=== PATIENT | female | born 1940 | race Caucasian/White ===

== ENCOUNTER → 2021-06-12 17:16 | Outpatient (CLI) | payer MEDICARE, SELFPAY ==
[2021-06-12 19:06] LABS: Basophils % 0.6 % (0.1-2.0); Eosinophils # 0.1 K/mm3 (0.0-0.4); Eosinophils % 3.1 % (0.1-12.0); Hematocrit 37.6 % (37.0-47.0); Hemoglobin 13.1 g/dL (12.2-16.2); Lymphocytes # 1.5 K/mm3 (0.7-4.5); Lymphocytes % 33.2 % (10-50); Mean Corpuscular HGB Conc 34.7 g/dL (31.8-35.4); Mean Corpuscular Hemoglobin 32.1 pg (27.0-31.2); Mean Corpuscular Volume 92.5 fl (81-99); Mean Platelet Volume 8.9 fl (7.4-10.4); Monocytes # 0.2 K/mm3 (0.1-1.0); Monocytes % 5.4 % (1.7-9.3); Neutrophils # 2.6 K/mm3 (1.8-7.8); Neutrophils % 57.6 % (37.0-80.0); Platelet Count 175 K/mm3 (142-424); Red Blood Count 4.07 M/mm3 (4.20-5.40); White Blood Count 4.5 K/mm3 (4.8-10.8)
[2021-06-12 19:50] LABS: Alanine Aminotransferase 18 U/L (12-78); Albumin Level 4.5 g/dl (3.5-5.0); Albumin/Globulin Ratio 1.6 (1.1-1.8); Alkaline Phosphatase 85 U/L (38-126); Anion Gap 11.2 mEq/L (5-15); Aspartate Amino Transferase 34 U/L (14-36); Bilirubin,Total 0.6 mg/dl (0.2-1.3); Blood Urea Nitrogen 16 mg/dl (7-17); Calcium 9.4 mg/dl (8.4-10.2); Carbon Dioxide 31 mmol/L (22.0-30.0); Chloride 101 mmol/L (98-107); Chol/HDL Ratio 2.1 (1-3.5); Cholesterol 189 mg/dl (140-200); Estimated Glomerular Filt Rate 97 ml/min (>60); GFR (African American) 117 ML/MIN (>60); Globulin 2.9 g/dL (1.3-3.2); Glucose 88 mg/dl (74-100); HDL Cholesterol 88 mg/dl (40-60); Potassium 4.2 mmoL/L (3.5-5.1); Sodium 139 mmol/L (136-145); Total Protein,Serum 7.4 g/dl (6.3-8.2); Triglycerides 80 mg/dl (30-150); VLDL Cholesterol 16 mg/dL (0-40)
[2021-06-12 20:01] LABS: Direct LDL Cholesterol 79.05 mg/dL (100-129)
[2021-06-12 20:23] LABS: Thyroid Stimulating Hormone 2.18 uIU/mL (0.465-4.68)
== END ==
PROVIDERS: Visit Provider Internal Medicine Adolescent Medicine
DX: E78.01 Familial hypercholesterolemia (principal); Z86.79 Personal history of other diseases of the circulatory system
CPT/HCPCS: 36415; 80053; 80061; 84443; 85025

== ENCOUNTER → 2021-07-04 12:50 | Outpatient (CLI) | payer MEDICARE, SELFPAY ==
--- NOTE | 2021-07-04 12:53 | CA_ITS ---
APPROVED REPORT EXAM: Comprehensive 2D, Doppler, and color-flow Echocardiogram Manager Of Development: Zelda Gabriel RT(R) Ht: 5 ft 5 in Wt: 144lbs BSA: 1.72 BP: 000/00 mmHg Indications: AFIB, murmur, HTN, hyperlipidemia 2D Dimensions LVOT 1.96 cm (M/F) 1.5-2.5 LA Volume 90.20 mL LA Volume Index 52.44 mL/m2 (M/F) 16-34 M-Mode Dimensions RVDd 3.57 cm (0.9-2.6) LA Diam 4.81 cm (1.9-4.0) LVDd 4.53 cm (3.5-5.7) Ao Diam 2.58 cm (2.0-3.7) LVDs 3.00 cm (3.5-5.7) IVSd 0.89 cm (0.6-1.1) PWd 0.68 cm (0.6-1.1) EF (Teich) 62.70% FS 33.80% EDV (Teich) 93.90 mL ESV (Teich) 35.00 mL LV Diastology E Decel Time 147.00 (160-240 msec) E/A Ratio 1.5 MED E' 8.60 (< 7 cm/sec) E'/MED E' Ratio 13.59 (>14) LAT E' 11.80 (<10 cm/sec) E/LAT E' Ratio 9.91 (>14) Mitral Valve MV E Max Jovany. 117.00 (40-130 cm/s) MV A Velocity 76.00 (40-130 cm/s) E/A Ratio 1.55 MV Decel. Time 147.00 (160-240 ms) MV PHT 43.00 ms Tricuspid Valve TR P. Velocity 341.00 cm/s RAP Estimate 15.00 mmHg RVSP 61.50 mmHg Left Ventricle Left atrium is moderately enlarged, left ventricle is normal size, mild concentric left ventricular hypertrophy, visually estimated ejection fraction 55% with no regional wall motion abnormality, diastolic parameters are inconclusive. Right Ventricle Right atrium and right ventricle moderately enlarged with normal contractility. Aortic Valve Aortic valve is thickened and calcified without aortic stenosis or aortic insufficiency. Mitral Valve Mitral valve leaflets are minimally thickened, there is mild mitral regurgitation. Tricuspid Valve Tricuspid valve is grossly normal, there is moderate tricuspid regurgitation, calculated right ventricular systolic pressure 62 mmHg. Pulmonic Valve Pulmonic valve is poorly visualized. Great Vessels Aortic root is normal size. Inferior vena cava is mildly dilated with normal inspiratory collapse. Pericardium No significant pericardial effusion noted Conclusion 1. Biatrial enlargement, normal left ventricular size, mild concentric left ventricular hypertrophy, visually estimated ejection fraction 55% with no regional wall motion abnormality. Diastolic parameters are inconclusive. 2. Moderately enlarged right ventricle with normal contractility. 3. Mild mitral and moderate tricuspid regurgitation, calculated right ventricular systolic pressure 62mmHg. 4. No significant pericardial effusion noted, inferior vena cava is mildly dilated with normal inspiratory collapse. Electronically signed by : Brandon Menon MD 07/04/2021 20:55:52
--- NOTE | 2021-07-04 12:53 | US_ITS ---
APPROVED REPORT Exam Type: Ankle to Brachial Index Event Sales Assistant: RT Justin(R) Indications Claudication: Bilaterally Rest Pain: Bilaterally Extensive and fragile varicosities noted in bilateral lower extremities. Risk Factors Hypertension Hyperlipidemia Pressures/Indices Right Indices Left Indices Brachial 149.00 mmHg Brachial 146.00 mmHg Low Thigh 202.00 mmHg 1.36 Low Thigh 177.00 mmHg 1.19 Calf 176.00 mmHg 1.18 Calf 167.00 mmHg 1.12 Ankle(PT) 186.00 mmHg 1.25 Ankle(PT) 193.00 mmHg 1.30 Ankle(DP) 162.00 mmHg 1.09 Ankle(DP) 145.00 mmHg 0.97 Digit 138.00 mmHg 0.93 Digit 110.00 mmHg 0.74 Findings RT MUSA=1.25 LT MUSA=1.30 RT TBI=0.93 LT TBI=0.74 Normal pulses bilaterally Diminished waveforms at the ankle level bilaterally Conclusion RT MUSA=1.25 LT MUSA=1.30 RT TBI=0.93 LT TBI=0.74 Normal pulses bilaterally Diminished waveforms at the ankle level bilaterally Normal ABIs Electronically signed by : Keven Villafana MD 07/04/2021 16:15:00
== END ==
PROVIDERS: PCP Internal Medicine Adolescent Medicine; Visit Provider Urology
DX: E78.5 Hyperlipidemia, unspecified (principal); I10 Essential (primary) hypertension; I48.91 Unspecified atrial fibrillation; M79.604 Pain in right leg; R60.0 Localized edema; R94.31 Abnormal electrocardiogram [ECG] [EKG]; M79.605 Pain in left leg; I70.213 Atherosclerosis of native arteries of extremities with intermittent claudication, bilateral legs
CPT/HCPCS: 93306; 93923

== ENCOUNTER → 2021-11-06 14:15 | Outpatient (CLI) | payer MEDICARE, SELFPAY ==
[2021-11-06 14:57] LABS: Basophils % 0.5 % (0.1-2.0); Eosinophils # 0.1 K/mm3 (0.0-0.4); Eosinophils % 2.6 % (0.1-12.0); Hematocrit 37.1 % (37.0-47.0); Hemoglobin 11.8 g/dL (12.2-16.2); Lymphocytes % 28.2 % (10-50); Mean Corpuscular HGB Conc 31.9 g/dL (31.8-35.4); Mean Corpuscular Volume 97.1 fl (81-99); Mean Platelet Volume 8.4 fl (7.4-10.4); Monocytes # 0.2 K/mm3 (0.1-1.0); Neutrophils # 2.2 K/mm3 (1.8-7.8); Neutrophils % 62.7 % (37.0-80.0); Platelet Count 188 K/mm3 (142-424); Red Blood Count 3.82 M/mm3 (4.20-5.40); Red Cell Distribution Width 14.1 % (11.5-17.5); White Blood Count 3.5 K/mm3 (4.8-10.8)
[2021-11-06 15:44] LABS: Alanine Aminotransferase 18 U/L (12-78); Albumin Level 4.3 g/dl (3.5-5.0); Albumin/Globulin Ratio 1.7 (1.1-1.8); Alkaline Phosphatase 68 U/L (38-126); Anion Gap 8.9 mEq/L (5-15); Aspartate Amino Transferase 36 U/L (14-36); Bilirubin,Total 0.5 mg/dl (0.2-1.3); Blood Urea Nitrogen 15 mg/dl (7-17); Calcium 9.7 mg/dl (8.4-10.2); Carbon Dioxide 32 mmol/L (22.0-30.0); Chloride 100 mmol/L (98-107); Cholesterol 172 mg/dl (140-200); Estimated Glomerular Filt Rate 81 ml/min (>60); GFR (African American) 98 ML/MIN (>60); Globulin 2.5 g/dL (1.3-3.2); Glucose 85 mg/dl (74-100); HDL Cholesterol 85 mg/dl (40-60); Potassium 3.9 mmoL/L (3.5-5.1); Sodium 137 mmol/L (136-145); Total Protein,Serum 6.8 g/dl (6.3-8.2); Triglycerides 69 mg/dl (30-150); VLDL Cholesterol 14 mg/dL (0-40)
[2021-11-06 16:01] LABS: Direct LDL Cholesterol 74.12 mg/dL (100-129); Free Thyroxine Index 3.4 ug/dL (5.93-13.13); T4 (Thyroxine) 10.5 ug/dl (5.53-11.0); Triiodothryronine (T3) Uptake 32 % (23.5-40.5)
[2021-11-06 16:14] LABS: Thyroid Stimulating Hormone 1.18 uIU/mL (0.465-4.68)
== END ==
PROVIDERS: Visit Provider Internal Medicine Adolescent Medicine
DX: I48.91 Unspecified atrial fibrillation (principal); E78.01 Familial hypercholesterolemia; N95.1 Menopausal and female climacteric states
CPT/HCPCS: 80053; 80061; 82306; 84436; 84443; 84479; 85025

== ENCOUNTER → 2022-01-04 09:24 | Outpatient (CLI) | payer MEDICARE, SELFPAY ==
--- NOTE | 2022-01-04 09:33 | XR_ITS ---
FINAL REPORT TECHNIQUE: Bone mineral density was calculated of the lumbar spine and hip. CLINICAL HISTORY: . post menopausal FINDINGS: Using L1-4, the bone mineral density of the spine is 1.116 g/cm2, corresponding to T-score of 0.6. Using the left hip, the bone mineral density of the total is 0.712 g/cm2, corresponding to a T-score of -1.9. NOTE: T-score: Standard deviation compared with peak bone mass of young adult mean. *Following the recommendations of the International Society of Bone densitometry, classification of hip BMD is based on the lower of two T-scores; total hip or femoral neck. IMPRESSION: Osteopenia of the left hip with normal bone mineral density of the lumbar spine. Based on FRAX data 10 year fracture risk for major osteoporotic fracture is 9.7% and a 1.4% for hip fracture. Reviewed, Interpreted and Dictated by Wilmer Henriquez III, MD Transcribed by Nathan Monroe Authenticated by Wilmer Henriquez III, MD on 01/04/2022 11:01:[address] [facility]
== END ==
PROVIDERS: PCP Internal Medicine Adolescent Medicine; Visit Provider Internal Medicine Adolescent Medicine
DX: Z78.0 Asymptomatic menopausal state (principal)
CPT/HCPCS: 77080

== ENCOUNTER → 2022-11-06 16:58 | Outpatient (CLI) | payer MEDICARE, SELFPAY ==
--- NOTE | 2022-11-06 17:14 | XR_ITS ---
PROCEDURE INFORMATION: Exam: XR Left Hip Exam date and time: 11/06/2022 5:17 PM Age: 82 years old Clinical indication: Hip pain; Left hip TECHNIQUE: Imaging protocol: Radiologic exam of the Left hip. Views: 2 or 3 views hip with pelvis when performed. COMPARISON: No relevant prior studies available. FINDINGS: Bones/joints: Osseous alignment is normal. No acute fracture seen. There are moderate degenerative changes in the bilateral hip joints and lower lumbar spine. Soft tissues: Unremarkable. Vasculature: Calcifications in the pelvis are compatible with phleboliths and benign uterine calcifications. IMPRESSION: Chronic findings as noted. No acute fracture
== END ==
PROVIDERS: PCP Internal Medicine Adolescent Medicine; Visit Provider Nurse Practitioner Family
DX: M25.852 Other specified joint disorders, left hip (principal)
CPT/HCPCS: 73502

== ENCOUNTER 2023-01-25 14:00 | Outpatient (RCR) | payer MEDICARE, SELFPAY ==
--- NOTE | 2023-01-15 15:49 | HMH.PTOPEV ---
PT Outpatient Evaluation Rehab PT Outpatient Evaluation Start: 01/15/23 15:35 Freq: Status: Active Protocol: Document 01/15/23 15:35 JAROCHO (Rec: 01/15/23 15:49 JAROCHO [id number]) E-signed By Jimmy Leach, PT Outpatient Therapy Subjective History Subjective History Patient is an 82 year old female presenting to outpatient PT with reports of L hip pain/weakness starting and ending 12/2022. Most recent imaging indicates L hip OA. Patient reports that pain started the day after an episode of prolonged standing (approx 1 hr) in November. Comorbidities include hx of stripped varicose veins, Afib, HTN, HL and appendectomy. Chief Complaint Pain,Stiff,Weakness Symptom Type Ache,Sharp,Dull Symptoms Relieved By Rest/Positioning,Heat,OTC Meds Symptoms Aggravated By Standing,Physical Activity, Walking Prior Functional Limitations None Current Functional Limitations Housework,Standing,Walking, Stairs,Balance Symptom Description Intermittent Level of pain today (0-10) 0 Pain scale - at its best (0-10) 0 Pain scale - at its worst (0-10) 4 Hip/Knee Eval Gait Observation General Gait Pattern Observation Antalgic Gait,Decrease Weight Bear (L) MMT left Hip Flexion Strength Grade 4- Good- Hip Abduction Strength Grade 4 Good Hip Adduction Strength Grade 4 Good Hip Extension Strength Grade 4 Good Hip External Rotation Strength Grade 4- Good- Hip Internal Rotation Strength Grade 4- Good- Knee Extension Strength Grade 4- Good- Knee Flexion Strength Grade 4 Good ROM Hip Flexion w/Knee Flexed Passive Range 92 of Motion (degrees) Hip Flexion w/Knee Extended Passive 47 Range of Motion (degrees) Hip Abduction Passive Range of Motion ( 36 degrees) Hip Extension Passive Range of Motion ( 12 degrees) Hip External Rotation Passive Range of WNL Motion (degrees) Hip Internal Rotation Passive Range of 10 Motion (degrees) Knee ROM Reason Not Measured Within Functional Limits Special Tests Hip Jigar Test Positive Left Hip Piriformis Test Positive Left Enrique Test Positive Outpatient Therapy Assessment Impairments Problems/Impairmments Impaired Range of Motion,
== END 2023-01-25 14:05 | disposition home or self-care (01) ==
LOC: PT 14:00
PROVIDERS: PCP Internal Medicine Adolescent Medicine; Visit Provider Internal Medicine Adolescent Medicine
DX: M25.852 Other specified joint disorders, left hip (principal); M79.605 Pain in left leg
CPT/HCPCS: 97110; 97163; 97530

== ENCOUNTER → 2023-01-29 09:51 | Outpatient (CLI) | payer MEDICARE, SELFPAY ==
--- NOTE | 2023-01-29 09:55 | US_ITS ---
FINAL REPORT TECHNIQUE: Ultrasound images of the kidneys and bladder were obtained. CLINICAL HISTORY: RENAL MASS FINDINGS: The right kidney measures 9.2 cm in length. It is normal in echogenicity. There is no hydronephrosis. There is a small, hypoechoic lesion in the mid right kidney measuring 1.6 cm, likely a cyst. The left kidney measures 8.9 cm in length. It is normal in echogenicity. There is no hydronephrosis. IMPRESSION: Right renal cyst. Reviewed, Interpreted and Dictated by Kandis Carrizales MD Transcribed by Lynnette Vinson Authenticated and [facility]
== END ==
PROVIDERS: PCP Internal Medicine Adolescent Medicine; Visit Provider Internal Medicine Adolescent Medicine
DX: N28.1 Cyst of kidney, acquired (principal)
CPT/HCPCS: 76770

== ENCOUNTER 2023-05-11 12:40 | Emergency (ER) | payer MEDICARE, SELFPAY ==
--- NOTE | 2023-05-11 12:45 | XR_ITS ---
PROCEDURE INFORMATION: Exam: XR Left Hand Exam date and time: 05/11/2023 12:43 PM Age: 82 years old Clinical indication: Pain; Finger(s) and wrist; Left; Additional info: (l) wrist and thumb pain. Patients states no injury but pain and tingling down into her fingers. TECHNIQUE: Imaging protocol: Radiologic exam of the left hand. Views: 3 or more views. COMPARISON: No relevant prior studies available. FINDINGS: Bones/joints: Diffuse osteopenia. Dystrophic calcification in the dorsal carpal region possibly sequela of prior triquetral fracture. No visible fracture or dislocation. No significant periarticular erosive changes to suggest inflammatory arthritis. Soft tissues: Normal. IMPRESSION: 1. No visible fracture or dislocation. 2. No significant periarticular erosive changes to suggest inflammatory arthritis.
[2023-05-11 13:15] VITALS: BP 151/96; PULSE 74; RESP 16; TEMP 36.6; O2SAT 98; BMI 24.0
--- NOTE | 2023-05-11 13:31 | EXP.UTC ---
Discharge Plan Disposition Patient Disposition: Home, Self-Care Condition: Good Prescriptions Prescriptions: New diclofenac sodium [Voltaren Arthritis Pain] 1 % gel 2 g topical BID Qty: 100 0RF Rx Instructions: apply to , wrist or hand; No Action Eliquis 5 mg tablet 5 mg PO ONCE loratadine 10 mg tablet 10 mg PO DAILY cholecalciferol (vitamin D3) 50 mcg (2,000 unit) capsule 50 mcg PO DAILY vitamin E 400 unit capsule 400 unit PO DAILY calcium carbonate 600 mg calcium (1,500 mg) tablet 600 mg PO DAILY ascorbic acid (vitamin C) 500 mg capsule 500 mg PO DAILY atorvastatin 20 mg tablet 20 mg PO DAILY Qty: 90 3RF lisinopril 5 mg tablet 5 mg PO DAILY Qty: 90 3RF Referrals Follow up/Referrals: Kolton Wayne MD [Primary Care Provider] - See instructions Activity Restrictions/Add. Instructions Additional Instructions/Restrictions: apply cream as needed. follow up with pcp if symptoms worsen or no improvement return or be seen in ed Instructions Patient Instructions: DI for Arthritis Discharge ED Provider: Isacc ([facility])[place] [facility] [place] H[place] General Stated complaint: LT hand pain no known accident Mode of Arrival: Ambulatory Source of Information: Patient Limitations: No Limitations Time Seen by Provider: 05/11/23 13:31 Description of Symptoms (Recalled from Triage Doc. by RN): PATIENT C/O PAIN TO LEFT WRIST AND HAND SINCE SATURDAY. NO KNOWN INJURY HEENT Symptoms (Recalled from RN notes): No Resp Symptoms (Recalled from RN notes): No Skin Symptoms (Recalled from RN notes): No MS Symptoms (Recalled from RN notes): Yes Functional Status (Recalled from RN notes): WNL History of Present Illness Provider Complaint: 82 yr old female presents for left wrist and hand pain that started . hx of arthritis Related Data Home Medications Medication Instructions Recorded Confirmed apixaban 5 mg tablet (Eliquis) 5 mg PO ONCE 06/26/21 01/16/23 ascorbic acid (vitamin C) 500 mg 500 mg PO DAILY 06/26/21 01/16/23 capsule calcium carbonate 600 mg calcium 600 mg PO DAILY 06/26/21 01/16/23 (1,500 mg) tablet cholecalciferol (vitamin D3) 50 50 mcg PO DAILY 06/26/21 01/16/23 mcg (2,000 unit) capsule loratadine 10 mg tablet 10 mg PO DAILY 06/26/21 01/16/23 vitamin E 268 mg (400 unit) capsule 400 unit PO DAILY 06/26/21 01/16/23 Previous Rx's Medication Instructions Recorded atorvastatin 20 mg tablet 20 mg PO DAILY #90 tabs 01/10/22 lisinopril 5 mg tablet 5 mg PO DAILY #90 tabs 07/12/22 diclofenac sodium 1 % topical gel 2 g topical BID #100 grams 05/11/23 (Voltaren Arthritis Pain) Allergies Allergy/AdvReac Type Severity Reaction Status Date / Time diazepam [From Valium] AdvReac dizziness Verified 01/16/23 13:47 ezetimibe [From Zetia] AdvReac swelling Verified 01/16/23 13:47 ibuprofen [From Motrin] AdvReac bleeding Verified 01/16/23 13:47 lovastatin [From Mevacor] AdvReac itching Verified 01/16/23 13:47 pravastatin AdvReac swelling Verified 01/16/23 13:47 simvastatin [From Zocor] AdvReac itching Verified 01/16/23 13:47 Sulfa (Sulfonamide AdvReac sycope Verified 01/16/23 13:47 Antibiotics) Worker's Comp Is this a Worker's Comp case?: No [facility] Disclaimer: The information contained in this section may have been updated after the patient was seen, as this information can be updated by other users. 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
[2023-05-11 13:37] VITALS: BP 151/96; PULSE 74; RESP 16; TEMP 36.6; O2SAT 98
== END 2023-05-11 13:40 | disposition home or self-care (01) ==
PROVIDERS: Emergency Provider Nurse Practitioner Family; PCP Internal Medicine Adolescent Medicine
DX: M19.032 Primary osteoarthritis, left wrist (principal); M19.042 Primary osteoarthritis, left hand; I48.0 Paroxysmal atrial fibrillation; I27.20 Pulmonary hypertension, unspecified; I10 Essential (primary) hypertension; E78.5 Hyperlipidemia, unspecified; F41.9 Anxiety disorder, unspecified
CPT/HCPCS: 73130; 99204; 99212; G0463

== ENCOUNTER → 2023-09-17 13:29 | Outpatient (POV) | payer MEDICARE, SELFPAY | PROVIDERS: PCP Internal Medicine Adolescent Medicine; Visit Provider Dermatology | DX: Z00.00 Encounter for general adult medical examination without abnormal findings (principal) ==

== ENCOUNTER 2024-03-10 09:57 | Outpatient (CLI) | payer MEDICARE, SELFPAY ==
[2024-03-10 17:20] LABS: Basophils % 0.5 % (0.1-2.0); Eosinophils # 0.1 K/mm3 (0.0-0.4); Eosinophils % 3.4 % (0.1-12.0); Hematocrit 35.1 % (37.0-47.0); Hemoglobin 11.1 g/dL (12.2-16.2); Lymphocytes # 1.2 K/mm3 (0.7-4.5); Lymphocytes % 28.9 % (10-50); Mean Corpuscular HGB Conc 31.7 g/dL (31.8-35.4); Mean Corpuscular Volume 97.6 fl (81-99); Mean Platelet Volume 8.6 fl (7.4-10.4); Monocytes # 0.3 K/mm3 (0.1-1.0); Monocytes % 6.4 % (1.7-9.3); Neutrophils # 2.5 K/mm3 (1.8-7.8); Neutrophils % 60.8 % (37.0-80.0); Platelet Count 183 K/mm3 (142-424); Red Cell Distribution Width 14.7 % (11.5-17.5); White Blood Count 4.1 K/mm3 (4.8-10.8)
[2024-03-10 18:30] LABS: Alanine Aminotransferase 22 U/L (12-78); Albumin Level 4.4 g/dl (3.5-5.0); Albumin/Globulin Ratio 1.7 (1.1-1.8); Alkaline Phosphatase 72 U/L (38-126); Anion Gap 13.1 mEq/L (5-15); Aspartate Amino Transferase 36 U/L (14-36); Bilirubin,Total 0.5 mg/dl (0.2-1.3); Blood Urea Nitrogen 26 mg/dl (7-17); Calcium 9.8 mg/dl (8.4-10.2); Carbon Dioxide 29 mmol/L (22.0-30.0); Chloride 99 mmol/L (98-107); Estimated Glomerular Filt Rate 80 ml/min (>60); GFR (African American) 97 ML/MIN (>60); Globulin 2.6 g/dL (1.3-3.2); Glucose 85 mg/dl (74-100); Potassium 4.1 mmoL/L (3.5-5.1); Sodium 137 mmol/L (136-145)
== END 2024-03-10 23:59 | disposition home or self-care (01) ==
LOC: LAB.DROPOF 03-11 09:58
PROVIDERS: PCP Internal Medicine Adolescent Medicine; Visit Provider Obstetrics & Gynecology
DX: N32.81 Overactive bladder (principal)
CPT/HCPCS: 80053; 85025

== ENCOUNTER 2024-05-11 09:34 | Outpatient (RCR) | payer MEDICARE, SELFPAY ==
--- NOTE | 2024-05-11 16:25 | HMH.PTOPEV ---
PT Outpatient Evaluation Rehab PT Outpatient Evaluation Start: 05/11/24 16:08 Freq: Status: Active Protocol: Document 05/11/24 16:14 PHORNE (Rec: 05/11/24 16:25 PHORNE [id number]) E-signed By Francisco Barr, PT Outpatient Therapy Subjective History Subjective History This is the initial PT eval for Halina Willoughby, 83 yowf who presents with c/o dizziness x ~ 1 mo associated with certain ways I look with my eyes and turn my head sometimes. She reports looking up frequently causes her dizziness, but also looking down and to her right will cause it as well. She reports no true vertigo symptoms, the room doesn't spin around, but a general sense of dizziness that lasts for 1-2 minutes each episode. She does take medication for HTN, has decreased hearing on the R side, and decreased vision in her R eye. She also reports 1 fall over the past 6 months, ~ 1 mo ago, with no acute injuries, and due to her feeling dizzy. New diagnosis of cancer in past 12 No months? Chief Complaint Other Symptom Description Activity Dependent Balance Eval Nystagmus Nystagmus Presence None Oculomotor Gaze Oculomotor Gaze Nml: Vergence Smooth Pursuit Saccades VOR Cancellation Cover/Uncover Cross Cover Miscellaneous Dx PT Eval Objective Objective [place]-hallpike and horizontal roll testing performed with no c/o dizziness or vertigo and no nystagmus noted to either direction. Pt did not report reproduction of any of her previously reported symptoms with any occulomotor tests either. Outpatient Therapy Assessment Impairments Problems/Impairmments Impaired Balance Prognosis Rehab Potential Innapropriate for Skilled Therapy Comment Pt presents with prior symptoms of vertigo/dizziness this date, but no current symptom reproduction capable during evaluation this date. No skilled need for vertigo treatment at this time. Clinical Impression Consistent with Diagnosis Yes Outpatient Therapy Plan of Care Treatment Plan May Include Eval/Re-Eval Yes Addendums This patient is a candidate for social No or vocational rehab? Patient/Guardian verbally acknowledges Yes understanding of treatment program and consents to further treatment? Patient/Guardian verbally acknowledges Yes understanding of diagnosis, prognosis and goals for treatment? Eval Complexity PT Charges 37920 - High Complexity Shoulder/Elbow Eval Shoulder Objective Measurements Elbow Objective Measurements PHYSICIAN CERTIFICATION: I certify the specified therapy services for Halina M Willoughby are required, authorized, and reviewed every 30 days.
== END 2024-05-11 09:40 | disposition home or self-care (01) ==
LOC: PT 09:34
PROVIDERS: Visit Provider Internal Medicine Adolescent Medicine
DX: R42 Dizziness and giddiness (principal)
CPT/HCPCS: 97163

== ENCOUNTER 2024-06-12 23:38 | Emergency (ER) | payer MEDICARE, SELFPAY ==
[2024-06-12 23:38] VITALS: BP 181/91; PULSE 86; RESP 18; TEMP 36.6; O2SAT 98; BMI 24.1
--- NOTE | 2024-06-12 23:41 | ECG_ITS ---
APPROVED REPORT Exam: Resting ECG HR:78 bpm ECG Measurements Heart Rate 78 AXES QRSd 98 QRS 113 QT 393 T 58 QTc 426 Conclusion ATRIAL FIBRILLATION POSSIBLE RIGHT VENTRICULAR HYPERTROPHY [SOME/ALL OF: PROMINENT R IN V1, LATE TRANSITION, RAD, DANII, SSS] ABNORMAL ECG No STEMI Electronically signed by : KATHY PELAEZ, 06/13/2024 06:07:41
--- NOTE | 2024-06-12 23:45 | XR_ITS ---
PROCEDURE INFORMATION: Exam: XR Chest Exam date and time: 06/12/2024 11:54 PM Age: 83 years old Clinical indication: Pain; Chest pressure; Additional info: Cp TECHNIQUE: Imaging protocol: Radiologic exam of the chest. Views: 1 view. COMPARISON: No relevant prior studies available. FINDINGS: Lungs: No evidence of acute pulmonary disease or infiltrates Pleural spaces: No large effusion or pneumothorax. Heart/Mediastinum: The heart is enlarged. Vasculature: There are calcifications of the aortic arch. Bones/joints: No evidence of acute osseous abnormalities within the visualized portions of the thoracic spine and ribs. Osseous structures appear appropriate for patient age. IMPRESSION: No dense parenchymal consolidation, pleural effusion, or pneumothorax.
[2024-06-12 23:51] LABS: Basophils # 0.1 K/mm3 (0-0.2); Basophils % 0.9 % (0.1-2.0); Eosinophils # 0.2 K/mm3 (0.0-0.4); Eosinophils % 3.6 % (0.1-12.0); Hematocrit 36.5 % (37.0-47.0); Hemoglobin 11.5 g/dL (12.2-16.2); Lymphocytes # 2.2 K/mm3 (0.7-4.5); Lymphocytes % 42.1 % (10-50); Mean Corpuscular HGB Conc 31.4 g/dL (31.8-35.4); Mean Corpuscular Hemoglobin 30.9 pg (27.0-31.2); Mean Corpuscular Volume 98.4 fl (81-99); Mean Platelet Volume 8.7 fl (7.4-10.4); Monocytes # 0.4 K/mm3 (0.1-1.0); Monocytes % 7.4 % (1.7-9.3); Neutrophils # 2.4 K/mm3 (1.8-7.8); Neutrophils % 45.9 % (37.0-80.0); Platelet Count 194 K/mm3 (142-424); Red Blood Count 3.71 M/mm3 (4.20-5.40); Red Cell Distribution Width 14.5 % (11.5-17.5); White Blood Count 5.3 K/mm3 (4.8-10.8)
[2024-06-12 23:52] LABS: Albumin Level 4.6 g/dl (3.5-5.0); Chloride 98 mmol/L (98-107)
[2024-06-12 23:53] LABS: Potassium 4.2 mmoL/L (3.5-5.1); Sodium 132 mmol/L (136-145)
[2024-06-12 23:55] LABS: Alanine Aminotransferase 20 U/L (12-78); Anion Gap 11.2 mEq/L (5-15); Aspartate Amino Transferase 35 U/L (14-36); Blood Urea Nitrogen 24 mg/dl (7-17); Carbon Dioxide 27 mmol/L (22.0-30.0); Creatinine Clearance Estimated 46 mL/min (50-200); Estimated Glomerular Filt Rate 69 ml/min (>60); GFR (African American) 83 ML/MIN (>60)
[2024-06-12 23:56] LABS: Albumin/Globulin Ratio 1.5 (1.1-1.8); Alkaline Phosphatase 73 U/L (38-126); Bilirubin,Total 0.7 mg/dl (0.2-1.3); Calcium 9.6 mg/dl (8.4-10.2); Globulin 3.1 g/dL (1.3-3.2); Glucose 96 mg/dl (74-100); INR 0.96 (0.9-1.1); Prothrombin Time 10.8 seconds (10.1-12.5); Total Protein,Serum 7.7 g/dl (6.3-8.2)
[2024-06-13 00:08] LABS: Troponin I < 0.01 ng/ml (0.00-0.034)
[2024-06-13 01:37] VITALS: BP 159/69; PULSE 77; RESP 17; TEMP 36.6; O2SAT 97
--- NOTE | 2024-06-13 01:39 | ED_ITS ---
Discharge Plan Disposition Patient Disposition: Home, Self-Care Condition: Good Prescriptions Prescriptions: No Action Eliquis 5 mg tablet 5 mg PO ONCE loratadine 10 mg tablet 10 mg PO DAILY cholecalciferol (vitamin D3) 50 mcg (2,000 unit) capsule 50 mcg PO DAILY calcium carbonate 600 mg calcium (1,500 mg) tablet 600 mg PO DAILY ascorbic acid (vitamin C) 500 mg capsule 500 mg PO DAILY atorvastatin 20 mg tablet 20 mg PO DAILY Qty: 90 3RF ketoconazole 2 % cream topical Patient Comments: APPLY 1 APPLICATION TOPICALLY 2 TIMES A DAY lisinopril 5 mg tablet 5 mg PO DAILY Qty: 90 3RF Referrals Follow up/Referrals: Provider,Referral, [Primary Care Provider] - See instructions Activity Restrictions/Add. Instructions Additional Instructions/Restrictions: You were evaluated in the ER and are appropriate for discharge at this time. Follow-up with cardiology on Saturday as scheduled. Return to the ER with new, worsening, or otherwise concerning symptoms. Clinical Impressions Clinical Impression: Chest pain Print Language Print Language: [place] Island[place] Discharge ED Provider: Kaushik Enciso General Chief Complaint: Chest Pain Stated Complaint: Chest Pain Time Seen by Provider: 06/12/24 23:45 Mode of Arrival: Ambulatory Source of Information: Patient Limitations: No Limitations Description of Symptoms (Recalled from ER Triage Doc. by RN): Patient reports that for the last 1 week she has been having chest pain that is substernal/epigastric to left chest that is severe only when she's lies flat for bed. Patient reports that when she gets up the pain goes away and she is able to continue with her normal activities. Patient denies nausea vomiting, denies sick contacts. Patient reports that she is currently in no pain at the time of triage. History of Present Illness HPI narrative: 83-year-old female presents to the ER for complaints of substernal/epigastric chest pain when she lies flat for bed. Patient reports this has been going on for the last week, she states she can go to bed feeling well, but wakes up with sudden pain. As soon as she sits up, the pain goes away and it does not come back. Patient denies nausea, vomiting, dizziness, difficulty breathing, or other associated symptoms. She has no pain on evaluation in the ER. She does report recent significant stressors and wonders if this is related to anxiety. Denies history of reflux. Related Data Home Medications ?Medication ?Instructions ?Recorded ?Confirmed apixaban 5 mg tablet (Eliquis) 5 mg PO ONCE 06/26/21 03/25/24 ascorbic acid (vitamin C) 500 mg 500 mg PO DAILY 06/26/21 03/25/24 capsule calcium carbonate 600 mg PO DAILY 06/26/21 03/25/24 cholecalciferol (vitamin D3) 50 50 mcg PO DAILY 06/26/21 03/25/24 mcg (2,000 unit) capsule loratadine 10 mg tablet 10 mg PO DAILY 06/26/21 03/25/24 ketoconazole 2 % topical cream applic topical 03/10/24 03/25/24 Previous Rx's ?Medication ?Instructions ?Recorded atorvastatin 20 mg tablet 20 mg PO DAILY #90 tabs 01/10/22 lisinopril 5 mg tablet 5 mg PO DAILY #90 tabs 07/12/22 Allergies Allergy/AdvReac Type Severity Reaction Status Date / Time diazepam [From Valium] AdvReac dizziness Verified 03/25/24 13:09 ezetimibe [From Zetia] AdvReac swelling Verified 03/25/24 13:09 ibuprofen [From Motrin] AdvReac bleeding Verified 03/25/24 13:09 lovastatin [From Mevacor] AdvReac itching Verified 03/25/24 13:09 pravastatin AdvReac swelling Verified 03/25/24 13:09 simvastatin [From Zocor] AdvReac itching Verified 03/25/24 13:09 Sulfa (Sulfonamide AdvReac sycope Verified 03/25/24 13:09 Antibiotics) [facility] Disclaimer: The information contained in this section may have been updated after the patient was seen, as this information can be updated by other users. Medical History OAB (overactive bladder) Anxiety History of anemia Pulmonary arterial hypertension HLD (hyperlipidemia) HTN (hypertension) Atrial fibrillation Social History Smoking Status: Never smoker alcohol intake: never substance use type: denies use current occupational status: other Travel in the last 8 weeks: Inside the [place] ROS Obtained: Yes All systems reviewed & no additional complaints except as documented Cardiovascular Cardiovascular: Reports chest pain Physical Exam General General appearance: alert and in no apparent distress Head Head exam: atraumatic and normocephalic Eye Eye exam: Present PERRL and EOMI ENT ENT exam: Present mucous membranes moist Neck Neck exam: Present normal inspection and full ROM Chest Chest inspection: Present symmetric chest wall rise; Absent tenderness Respiratory Respiratory exam: Present normal lung sounds bilaterally; Absent respiratory distress, wheezes or stridor Cardiovascular Cardiovascular exam: Present regular rate and normal rhythm Abdominal Exam Abdominal exam: Present soft; Absent distention or tenderness Extremities Exam Extremities exam: Present full ROM Neurological Exam Neurological exam: Present alert and oriented X3; Absent motor sensory deficit Psychiatric Psychiatric exam: Present normal affect and normal mood Skin Skin exam: Present warm and dry HEART Score HEART Score HEART Score assessment performed?: Yes History (anamnesis): Slightly suspicious ECG: Non-specific disturbance Age: >65 years Risk factors: 1-2 risk factors Troponin: </= normal limit HEART Score: 4 Procedures Miscellaneous Procedure Procedure Performed: Limited Cardiac Ultrasound Indication: Chest pain Identified cardiac views: [-Cardiac parasternal long axis] [-Cardiac parasternal short axis] [-Cardiac apical four-chamber] Findings: Cardiac activity present, no gross wall motion abnormality, no pericardial effusion, no findings of right heart strain Impression: -Unremarkable limited cardiac ultrasound Images were saved to permanent archive The study was technically adequate CPT: 94614 This study was performed by me, and I personally interpreted all images/videos. Based on my clinical judgement, these images were adequate and did not necessitate further imaging. Critical Care Critical Care Time Critical Care Time: No Medical Decision Making Medical Records Medical records reviewed: Yes I reviewed the patient's medical records. MR Comment: Most recent note from cardiology in January demonstrates patient had well-controlled hypertension, on a statin, they planned to continue current meds with no changes and follow-up in 6 months. Pk Inquiry Pt receiving controlled substance: No Vital Signs Vital Signs: 06/12/24 23:38 06/13/24 01:37 Temperature 97.9 F 98 F Temperature Source Oral Oral Pulse Rate 77 Pulse Rate [Left Radial] 86 Respiratory Rate 18 17 Blood Pressure 159/69 H Blood Pressure [Right Arm] 181/91 H Blood Pressure Mean [Right Arm] 121 Blood Pressure Source Automatic Cuff Blood Pressure Source [Right Arm] Automatic Cuff Blood Pressure Position Sitting Blood Pressure Position [Right Arm] Sitting 02 Sat by Pulse Oximetry 98 Oxygen Delivery Method Room Air Room Air Lab Data Labs: Lab Results 06/12/24 23:40: WBC 5.3, RBC 3.71 L, Hgb 11.5 L, Hct 36.5 L, MCV 98.4, MCH 30.9, MCHC 31.4 L, RDW 14.5, Plt Count 194, MPV 8.7, Neut % (Auto) 45.9, Lymph % (Auto) 42.1, Ada % (Auto) 7.4, Eos % (Auto) 3.6, Baso % (Auto) 0.9, Neut # (Auto) 2.4, Lymph # (Auto) 2.2, Ada # (Auto) 0.4, Eos # (Auto) 0.2, Baso # (Auto) 0.1, PT 10.8, INR 0.96, Sodium 132 L, Potassium 4.2, Chloride 98, Carbon Dioxide 27, Anion Gap 11.2, BUN 24 H, Creatinine 0.80, Estimated Creat Clear 46, Estimated GFR 69, Est GFR ( Amer) 83, Glucose 96, Calcium 9.6, Total Bilirubin 0.7, AST 35, ALT 20, Alkaline Phosphatase 73, Troponin I < 0.01, Total Protein 7.7, Albumin 4.6, Globulin 3.1, Albumin/Globulin Ratio 1.5 06/12/24 23:40 06/12/24 23:40 Response Orders (Tests/Meds): ORDERS Category Date Time Status CXR --portable [XR chest portable] Stat Exams 06/12/24 23:45 Completed POCUS Point of Care (ER Only) Stat Exams 06/12/24 23:51 Ordered CBC w/Auto Diff [Complete Blood Count Auto Diff] Stat Lab 06/12/24 23:40 Completed CMP [Comprehensive Metabolic Panel] Stat Lab 06/12/24 23:40 Completed PT INR [Prothrombin Time INR] Stat Lab 06/12/24 23:40 Completed Trop I [Troponin I] Stat Lab 06/12/24 23:40 Completed Troponin I Q3H Lab 06/13/24 02:45 Ordered Troponin I Q3H Lab 06/13/24 05:45 Ordered MDM Narrative Medical Decision Narrative: In summary, this 83-year-old female presents to the emergency department today with chest pain when she lays flat. On initial evaluation patient is hemodynamically stable, afebrile, asymptomatic, no chest tenderness, cardiopulmonary exam reassuring, no peripheral edema. Differential diagnosis includes but is not limited to ACS, arrhythmia, pericarditis, pericardial effusion, pleural effusion, pneumothorax. Based on these concerns, I ordered cardiac workup, perform [id number] ultrasound, chest x-ray. ECG personally interpreted demonstrates atrial fibrillation, rate 78, normal axis, no STEMI, normal QTc. Patient did not require any medications in the ER. Labs personally reviewed demonstrate no leukocytosis, mild anemia stable from previous, PT/INR normal, sodium 132, nonactionable, mild prerenal azotemia but patient is tolerating oral intake, not intervenable at this time, initial troponin undetectably low at less than 0.01, given the duration of patient's symptoms I do not believe serial troponins are necessary at this time. Chest x-ray personally interpreted does not demonstrate any acute intrathoracic abnormality, see radiology read for final interpretation. [id number] ultrasound performed and personally interpreted is reassuring. On reassessment patient continues to be asymptomatic. She is reassured by the workup performed today. She does not require additional labs or imaging and is appropriate for discharge. She already has follow-up with cardiology scheduled for Saturday which I believe is appropriate. Patient was given instructions on symptomatic management, follow up instructions, and return precautions for the emergency department. Patient indicated understanding and was discharged in stable condition.
== END 2024-06-13 01:42 | disposition home or self-care (01) ==
PROVIDERS: Emergency Provider Emergency Medicine
DX: R07.9 Chest pain, unspecified (principal); E87.1 Hypo-osmolality and hyponatremia; I48.0 Paroxysmal atrial fibrillation; I10 Essential (primary) hypertension; E78.5 Hyperlipidemia, unspecified; Z79.01 Long term (current) use of anticoagulants
CPT/HCPCS: 71045; 80053; 84484; 85025; 85610; 93005; 99284

== ENCOUNTER 2024-06-15 12:38 | Outpatient (CLI) | payer MEDICARE, SELFPAY ==
[2024-06-15 13:08] LABS: Basophils % 0.5 % (0.1-2.0); Eosinophils # 0.2 K/mm3 (0.0-0.4); Eosinophils % 3.4 % (0.1-12.0); Hematocrit 32.1 % (37.0-47.0); Hemoglobin 11.5 g/dL (12.2-16.2); Lymphocytes # 1.2 K/mm3 (0.7-4.5); Lymphocytes % 27.3 % (10-50); Mean Corpuscular HGB Conc 35.8 g/dL (31.8-35.4); Mean Corpuscular Hemoglobin 36.1 pg (27.0-31.2); Mean Corpuscular Volume 100.9 fl (81-99); Monocytes # 0.3 K/mm3 (0.1-1.0); Monocytes % 6.4 % (1.7-9.3); Neutrophils # 2.7 K/mm3 (1.8-7.8); Neutrophils % 62.3 % (37.0-80.0); Platelet Count 162 K/mm3 (142-424); Red Blood Count 3.18 M/mm3 (4.20-5.40); Red Cell Distribution Width 14.7 % (11.5-17.5); White Blood Count 4.4 K/mm3 (4.8-10.8)
[2024-06-15 13:43] LABS: Alanine Aminotransferase 20 U/L (12-78); Albumin Level 4.2 g/dl (3.5-5.0); Alkaline Phosphatase 66 U/L (38-126); Aspartate Amino Transferase 35 U/L (14-36); Bilirubin,Indirect 0.6 mg/dL (0.0-0.9); Bilirubin,Total 0.6 mg/dl (0.2-1.3); Bilirubin,Unconjugated 0.7 mg/dL (0.0-1.1); Blood Urea Nitrogen 19 mg/dl (7-17); Calcium 9.6 mg/dl (8.4-10.2); Carbon Dioxide 31 mmol/L (22.0-30.0); Chloride 102 mmol/L (98-107); Chol/HDL Ratio 2.1 (1-3.5); Cholesterol 180 mg/dl (140-200); Estimated Glomerular Filt Rate 96 ml/min (>60); GFR (African American) 116 ML/MIN (>60); Glucose 97 mg/dl (74-100); HDL Cholesterol 84 mg/dl (40-60); Magnesium 1.6 mg/dl (1.6-2.3); Sodium 139 mmol/L (136-145); Total Protein,Serum 7.1 g/dl (6.3-8.2); Triglycerides 78 mg/dl (30-150); VLDL Cholesterol 16 mg/dL (0-40)
[2024-06-15 13:54] LABS: Direct LDL Cholesterol 66.84 mg/dL (100-129)
[2024-06-15 13:57] LABS: NT Pro Brain Natriuretic Pep. 712 pg/mL (0-450)
[2024-06-15 13:59] LABS: Free T4 (Free Thyroxine) 1.12 ng/dl (0.78-2.19)
[2024-06-15 14:03] LABS: Troponin I < 0.01 ng/ml (0.00-0.034)
[2024-06-15 14:16] LABS: Thyroid Stimulating Hormone 1.52 uIU/mL (0.465-4.68)
== END 2024-06-15 23:59 | disposition home or self-care (01) ==
LOC: LAB 12:39
PROVIDERS: PCP Internal Medicine Adolescent Medicine; Visit Provider Nurse Practitioner Family
DX: R07.89 Other chest pain (principal); I48.20 Chronic atrial fibrillation, unspecified; I10 Essential (primary) hypertension; E78.2 Mixed hyperlipidemia; I27.21 Secondary pulmonary arterial hypertension; K21.9 Gastro-esophageal reflux disease without esophagitis
CPT/HCPCS: 36415; 80048; 80061; 80076; 83735; 83880; 84439; 84443; 84484; 85025; 85378

== ENCOUNTER 2024-06-25 10:01 | Outpatient (CLI) | payer MEDICARE, SELFPAY ==
--- NOTE | 2024-06-25 | CA_ITS ---
APPROVED REPORT Exam: Pharmacologic Technologist: Doreen Dean, Ht: 5 ft 6 in Wt: 147 lbs BSA: 1.75 m2 HR: 72 bpm BP: 144/44 mmHg Rhythm: Afib, low voltage QRS, rightward axis Medical History Medical History: HTN, Hyperlipidemia Medications: Lisinopril,,,,, Atorvastatin,,,,, Vit D3,,,,, Vit C,,,,, LoraTADINE,,,,, ElIQUIS,,,,, Calcium CaRBONATE,,,,, Allergies: Pravastatin, Simvastatin, Sulfa, Diazepam, Ezetimibe, Ibuprofen, Lovastatin Cardiac Risk Factors: HTN, , Hyperlipidemia Stress Test Details Test: LEXISCAN HR Resting HR: 63 bpm Max Heart Rate (APMHR): 138 bpm Max HR Achieved: 94 bpm Target HR (85% APMHR): 117 bpm % of APMHR: 68 Recovery HR: 83 bpm BP Resting BP: 144/44 mmHg Max BP: 168/54 mmHg Recovery BP: 140.0/53.0 mmHg ECG Resting ECG: Afib, low voltage QRS, rightward axis, baseline ST abnormality in inferolateral leads Stress ECG: No significant ST changes Arrhythmia: None Clinical Exercise duration: 04:06 min Highest Stage Achieved: Exercise capacity: 1.0 METs Stress ECG Conclusion Afib throughout Baseline ST abnormalities in inferolateral leads No significant ST changes after Lexiscan administration. Conclusion: Unremarkable ECG portion of Lexiscan stress test. Myoview images reported separately. Test Summary REST 06:25 . . 63 . 144/ 44 . . Stage 1 01:00 . . 90 . . . . Stage 2 01:00 . . 78 . 121/ 51 . . Stage 3 01:00 . . 80 . 131/ 49 . . Stage 4 01:00 . . 80 . 141/ 52 . . Stage 4 01:06 . . 83 . 141/ 52 . Stop exercise at 04:06 RECOVERY 01:00 . . 87 . 137/ 52 . . RECOVERY 02:00 . . 81 . 140/ 53 . . RECOVERY 02:42 . . 84 . 140/ 53 . . Electronically signed by : Melissa Trevino MD 06/29/2024 11:27:40
--- NOTE | 2024-06-25 10:02 | CA_ITS ---
APPROVED REPORT EXAM: Comprehensive 2D, Doppler, and color-flow Echocardiogram [employer] Operator: Chayo Lira RVT Ht: 5 ft 6 in Wt: 145lbs BSA: 1.74 BP: 154/69 mmHg Indications: CP,A-FIB,PHTN,HTN,HLD 2D Dimensions LA Volume 74.70 mL LA Volume Index 42.69 mL/m2 (M/F) 16-34 M-Mode Dimensions RVDd 3.18 cm (0.9-2.6) LA Diam 4.84 cm (1.9-4.0) LVDd 3.79 cm (3.5-5.7) LVDs 2.47 cm (3.5-5.7) IVSd 1.25 cm (0.6-1.1) PWd 0.64 cm (0.6-1.1) EF (Teich) 64.80% FS 34.80% EDV (Teich) 61.60 mL TAPSE 1.41 (<1.7) ESV (Teich) 21.70 mL LV Diastology E Decel Time 227 (160-240 msec) E/A Ratio 1.8 Aortic Valve ZAHEER Index 0.61 cm2/m2 AoV Peak Jovany. 239.0 (50-130 cm/s) AO Peak GR. 22.80 mmHg AO Mean GR. 13.70 (<5 mmHg) AO VTI 53.9 (18-25 cm) ZAHEER (VTI) 1.10 (2.5-4.5 cm2) Mitral Valve MV E Max Jovany. 105.0 (40-130 cm/s) MV A Velocity 57.0 (40-130 cm/s) E/A Ratio 1.83 MV PHT 66.0 ms Pulmonary Valve PV Peak Velocity 91.0 (50-150 cm/s) Tricuspid Valve TR P. Velocity 319.00 cm/s RAP Estimate 10.00 mmHg RVSP 50.60 mmHg Left Ventricle The left ventricle is normal size. The left ventricular systolic function is normal. The left ventricular ejection fraction is within the normal range. There is increased LV wall thickness. There is normal LV segmental wall motion. Diastolic function is indeterminate. LVEF is 55%. Right Ventricle Right ventricle is mildly dilated. The right ventricular systolic function is normal. Atria Left atrium is severely dilated. Right atrium is severely dilated. There is no Doppler evidence of interatrial shunt. Aortic Valve The aortic valve is mildly thickened. Mild to moderate aortic stenosis. ZAHEER by continuity equation is 1.4 cm???. Peak velocity 2.5 m/s. Mean AV gradient 14 mmHg. Max AV gradient 25 mmHg. Trace aortic regurgitation. Mitral Valve The mitral valve leaflets are mildly thickened. No evidence of mitral valve stenosis. Mild mitral regurgitation. Tricuspid Valve The tricuspid valve leaflets are thin and pliable. Moderate tricuspid regurgitation. RVSP is 30-35 mmHg. Pulmonic Valve The pulmonary valve is normal in structure. Trace pulmonic regurgitation. Great Vessels The aortic root is normal in size. IVC is normal in size and collapses >50% with inspiration. Pericardium Trivial, posterior pericardial effusion is present. No echo indications of tamponade. Other Information Study Quality: Fair Conclusion Normal LV systolic function. Mild RV dilation with normal RV function. Severe biatrial dilation. Mild to moderate (ZAHEER by continuity equation is 1.4 cm???. Peak velocity 2.5 m/s. Mean AV gradient 14 mmHg. Max AV gradient 25 mmHg). Moderate TR. Mild MR. RVSP 30-35 mmHg. Trivial, posterior pericardial effusion. Electronically signed by : Melissa Trevino MD 06/30/2024 11:38:25
--- NOTE | 2024-06-25 10:37 | NM_ITS ---
APPROVED REPORT Exam: Nuclear Stress Test Indication: Chest pain, Fatigue, HTN, High cholesterol, Family history Patient Location: Outpatient Stress Tech: Doreen MORSE Tech:GARETH Champagne RT(R)(N) Ht: 5 ft 5 in Wt: 145 lbs Bra Size: 38D HR: 62 bpm BP: 144/44 mmHg BSA: 1.73 m2 TID: 0.96 BMI: 24.1 History: Chest pain, Fatigue, HTN, High cholesterol, Family history Procedure: Patient received 0.4 mg of intravenous Lexiscan, resting heart rate 62 bpm, resting blood pressure 144/44 mmHg, with Lexiscan maximum heart rate achieved was 94 bpm which is % of the maximum predicted heart rate and blood pressure was 168/54 mmHg. With Lexiscan, patient denied any complaint of chest pain. Cardiac Stress and Resting SPECT Images: Cardiac Stress and Resting SPECT images were obtained using technetium 99m Myoview 32.7 mCi stress and 10.41 mCi at rest. The patient is unable to lie on her abdomen. Therefore, prone stress imaging could not be performed. This may affect the diagnostic interpretation of the study findings. Resting and stress imaging in supine positions demonstrate no evidence of fixed or reversible perfusion defects. Gated imaging demonstrates normal global and regional LV systolic function. LVEF is calculated at 65%. Conclusion: No evidence of fixed or reversible perfusion defects. Gated imaging demonstrates normal global and regional LV systolic function. LVEF is calculated at 65%. Electronically signed by : Melissa Trevino MD 06/29/2024 11:32:52
[2024-06-25] MEDS: REGADENOSON 0.4MG/5ML SYRINGE 0.4 MG IV (13:34)
[2024-06-25] MEDS: SODIUM CHLORIDE 0.9% 10ML SYR (RAD ONLY) 10 ML IV ×2 (13:36)
[2024-06-25] MEDS: ISOTOPE MYOVIEW (PER STUDY) 1 DOSE IV (13:36)
== END 2024-06-25 23:59 | disposition home or self-care (01) ==
LOC: RT 10:02
PROVIDERS: PCP Internal Medicine Adolescent Medicine; Visit Provider Nurse Practitioner Family
DX: R07.89 Other chest pain (principal); I48.20 Chronic atrial fibrillation, unspecified; I10 Essential (primary) hypertension; I27.21 Secondary pulmonary arterial hypertension; E78.2 Mixed hyperlipidemia
CPT/HCPCS: 78452; 93017; 93018; 93306; A9502; J2785

== ENCOUNTER 2024-06-26 08:25 | Outpatient (CLI) | payer MEDICARE, SELFPAY ==
[2024-06-26 09:24] LABS: Chloride 101 mmol/L (98-107); Potassium 4.4 mmoL/L (3.5-5.1); Sodium 136 mmol/L (136-145)
[2024-06-26 09:27] LABS: Anion Gap 9.4 mEq/L (5-15); Blood Urea Nitrogen 18 mg/dl (7-17); Carbon Dioxide 30 mmol/L (22.0-30.0); Estimated Glomerular Filt Rate 80 ml/min (>60); GFR (African American) 97 ML/MIN (>60)
[2024-06-26 09:28] LABS: Calcium 9.2 mg/dl (8.4-10.2); Glucose 90 mg/dl (74-100)
== END 2024-06-26 23:59 | disposition home or self-care (01) ==
LOC: LAB 08:27
PROVIDERS: PCP Internal Medicine Adolescent Medicine; Visit Provider Nurse Practitioner Family
DX: I10 Essential (primary) hypertension (principal); E78.2 Mixed hyperlipidemia; I27.21 Secondary pulmonary arterial hypertension; I48.20 Chronic atrial fibrillation, unspecified; K21.9 Gastro-esophageal reflux disease without esophagitis; R07.89 Other chest pain
CPT/HCPCS: 36415; 80048

== ENCOUNTER 2025-08-03 08:07 | Observation (INO) | payer MEDICARE, SELFPAY ==
[2025-08-03] VITALS (10 sets, daily range): BP systolic 151–182; BP diastolic 68–93; PULSE 70–86; RESP 13–19; TEMP 36.4–36.9; O2SAT 95–100; BMI 24.1; BMI 24.0
--- NOTE | 2025-08-03 08:22 | CT_ITS ---
FINAL REPORT TECHNIQUE: multiple axial CT images were performed from the foramen magnum to the vertex without enhancement. This study was performed with techniques to keep radiation doses as low as reasonably achievable, (ALARA). Individualized dose reduction techniques using automated exposure control or adjustment of mA and/or kV according to the patient's size were employed. CLINICAL HISTORY: possible stroke, left sided facial droop COMPARISON: None FINDINGS: Mild atrophy with proportional ventriculomegaly. There is periventricular white matter change likely related to small vessel disease. There is no evidence of hemorrhage. No masses are identified. No extra-axial fluid is seen. The paranasal sinuses are normal. IMPRESSION: Atrophy and chronic changes without acute process. Reviewed, Interpreted and Dictated by Clark Kaba MD Transcribed by Tanya Olea Authenticated and [facility]
--- NOTE | 2025-08-03 08:22 | CT_ITS ---
FINAL REPORT TECHNIQUE: NASCET technique utilized for stenosis evaluation. This study was performed with techniques to keep radiation doses as low as reasonably achievable, (ALARA). Individualized dose reduction techniques using automated exposure control or adjustment of mA and/or kV according to the patient's size were employed. CLINICAL HISTORY: possible stroke, left sided facial droop COMPARISON: None FINDINGS: RIGHT CAROTID: Moderate vascular calcification at the carotid bifurcation with no significant carotid stenosis. LEFT CAROTID: Moderate vascular calcification at the carotid bifurcation with no significant carotid stenosis. VERTEBRALS: The vertebrals are patent and codominant. No significant stenosis is present. IMPRESSION: No significant arterial abnormality. Reviewed, Interpreted and Dictated by Clark Kaba MD Transcribed by Tanya Olea Authenticated and [facility]
--- NOTE | 2025-08-03 08:22 | CT_ITS ---
FINAL REPORT TECHNIQUE: thin section axial CT with and without IV contrast supplemented with multiplanar 3-D reconstruction of the head. This study was performed with techniques to keep radiation doses as low as reasonably achievable, (ALARA)individualized dose reduction techniques using automated exposure control or adjustment of mA and/or kV according to the patient's size were employed. CLINICAL HISTORY: possible stroke, left sided facial droop COMPARISON: None FINDINGS: CTA: The cranial circulation is unremarkable. There is no significant stenosis, aneurysm or occlusion. IMPRESSION: No acute process. Reviewed, Interpreted and Dictated by Clark Kaba MD Transcribed by Tanya Olea Authenticated and . [facility]
--- OUTSIDE RECORDS SUMMARY | 2025-08-03 08:27 | XMS_ITS | Continuity of Care Document ---
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 Plan of Treatment Reminders Order Date Submit Date Provider Last Modified By Organization Details Last Modified Time Details Appointments DERM ESTABLISH ED 2025 11:00A M JENNIFER HIRSCH MD Not available Not available Not available Lab None recorded. Referral None recorded. Procedures None recorded. Surgeries None recorded. Imaging None recorded. Medication Orders triamcino lone acetonide 0.1 % topical ointment 2024 025 [id number] [facility], [address], [address], 07/26/2025 11:30:04 Patient TargetsNo targets recorded. Patient Instructions Encounter Date Encounter Id Patient Instructions Last Modified By Organization Details Last Modified Time 07/26/2025 [id number] Recommended returning to clinic in 6 months for FBSE Not available 2025 16:30:05 Reason for Referral None Reported. 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 Procedures Surgical History Date Name Laterality Status Provider Name and Address Organization Details Recorded Time 01/29/20 25 DAK - Cryo AK completed [facility] 01/28/2025 11:36:31 08/17/20 24 DAK - Biopsy, Tangential completed [facility] 08/17/2024 11:21:21 04/09/20 24 DAK - Cryo AK completed [facility] 04/09/2024 13:39:04 04/09/20 24 DAK - Biopsy, Tangential completed [facility] 04/09/2024 13:39:41 03/05/20 24 DAK - Cryo AK completed [facility] 03/05/2024 10:59:16 12/16/19 24 DAK - Cryo AK completed [facility] 12/16/2023 13:00:22 Mohs completed [facility] 12/16/2023 12:47:16 Appendectomy completed [facility] 12/16/2023 12:51:02 Imaging Results None recorded. Procedure Notes None recorded. Medical Equipment None Reported. Allergies Allergen ID Allergen Name Allergen Category Reaction Reaction Severity Criticality Documentation Date Start Date Code Code System Note Provider Name and Address Organization Details Recorded Time 782383 Substance with sulfonami de structure and antibacte rial mechanism of action (substanc e) medicatio n Not available Not available Not available 09/28/20162012 43353 8003 SNOMED Comme nt: Cregiancarlo ed By: Tano kurtz Date: 2012 7:57: 50 AM; Not Available [facility] 6 08:52:00 447715 Zocor medicatio n Not available Not available Not available 09/28/20162012 41824 3 RxNorm Comme nt: Creat ed By: Tano Ballesteros ;Crea jerardo Date: 2012 7:58: 33 AM; Not Available [facility] 6 08:52:00 894521 Motrin medicatio n Not available Not available Not available 09/28/2016201248 8 RxNorm Comme nt: Creat ed By: Tano Ballesteros ;Crea jerardo Date: 2012 7:58: 10 AM; Not Available [facility] 6 10:05:37 377303 Mevacor medicatio n Not available Not available Not available 09/28/20162012 77961 8 RxNorm Comme nt: Creat ed By: Tano Ballesteros ;Crea jerardo Date: 2012 7:58: 24 AM; Not Available [facility] 6 10:28:03 802366 Zetia medicatio n Not available Not available Not available 09/28/20162012 52442 9 RxNorm Comme nt: Creat ed By: Tano Ballesteros ;Crea jerardo Date: 2012 7:58: 51 AM; Not Available [facility] 6 10:41:11 290942 Valium medicatio n Not available Not available Not available 12/16/202397257 2 RxNorm Dasha Hill [facility] 4 13:03:33 632874 pravastat in medicatio n Not available Not available Not available 12/16/2023 95991 RxNorm Dasha Hill [facility] 4 13:03:40 Medications Name Sig Start Date Stop Date Status Note LastModified by Organization Details LastModified Time atorvasta tin 20 mg tablet Take 1 tablet every day by oral route. active Not Available Not Available No t Available triamcino lone acetonide 0.1 % topical ointment APPLY A THIN LAYER TO THE hands for 1 week then take 1 week break. repeat if needed 2024 active Not Available Not Available Not Avai lable lisinopri l 5 mg tablet Take 1 tablet every day by oral route. active Not Available Not Available No t Available mupirocin 2 % topical ointment 3x daily to area around nose until healed 2024 active Not Available Not Available Not Avai lable ketoconaz ole 2 % topical cream APPLY TO THE AFFECTED AREA(S) BY TOPICAL ROUTE TWICE DAILY 2023 active Not Available Not Available Not Avai lable acetamino phen 500 mg capsule Take 2 capsules every 6 hours by oral route. active as needed Not Available Not Available Not Available loratadin e Daily active Frequenc y: daily;Me dication Descript ion: loratadi ne; Dosage:1 ; Route:or al; refills: 5; Quantity :30 Not Available Not Available Not Available Vitamin C active Not Available Not Gertrudis ilable Not Available aspirin 12/16 completed Medicati on Descript ion: aspirin; refills: 0 Not Available Not Available Not Available vitamin E active Not Available Not Gertrudis ilable Not Available cranberry active Not Available Not Gertrudis ilable Not Available Lasix active Not Available Not Availa ble Not Available Fish Oil active Not Available Not Avai lable Not Available Calcium 600 active Not Available Not Available Not Available Refresh active Not Available Not Avail able Not Available Vitamin D3 active Not Available Not Available Not Available Metamucil active Not Available Not Gertrudis ilable Not Available Myrbetriq active Not Available Not Gertrudis ilable Not Available Eliquis 5 mg tablet Take 1 tablet twice a day by oral route. active Not Available Not Available No t Available Vitamin B12 12/16 completed Medicati on Descript ion: cyanocob alamin; refills: 0 Not Available Not Available Not Available Hair, Skin and Nails (biotin) active Not Available Not Available Not Available Vitals None Recorded Social History Question Answer Notes LastModified by Organizat ion Details LastModified Time What Was The Date Of Your Most Recent Tobacco Screening? 03/05/2024 Information not available 03/05/2024 Sex: Unknown Functional Status Question Answer Note LastModified by Organization D etails LastModified Time Do you or have you ever used any other forms of tobacco or nicotine? No Information not available 03/05/2024 Mental Status None recorded. Family History Relationship Description Onset Age of this Age Resolved Age Notes LastModified by Organization Details LastModified Time Sister Malignant melanoma alec Not available 2023 12:47:09 Medical History Condition Response Basal Cell Carcinoma Y Gynecological HistoryNo gynecological history recorded. Obstetrics History GPAL:G 0 P 0 0 0 0 Past Encounters Encounter ID Performer Location Encounter Start Date Encounter Closed Date Diagnosis/Indication Diagnosis SNOMED-CT Code Diagnosis ICD10 Code Diagnosis IMO Codes Diagnosis Note [id number] JENNIFER HIRSCH MD [facility] [address] [place] [address] 07/26/2025 10:56:19 07/26/2025 11:30:20 Hand eczema 871477275 L30.9 332259 Nature of the diagnosis was discussed. Rx sent for triamcinol one acetonide 0.1% topical ointment to apply to hands BID for 1 week then take 1 week break. Repeat if needed.Reyes it applicatio n of topical steroids to 2 weeks.combination man use of topical steroids can cause thinning of the skin. Eruption [id number] R21 02399 No visible condition today.Gema ent notes recent change in toothpaste helped rash subside.F/ u if rash reappears. Health Concerns Section Related Observation LastModified by Organization Detai ls LastModified Time None Recorded Concern Status LastModified by Organization Details LastModified Time None Recorded Payers Encounter Date Sequence Insurance Name Policy Number Policy Vazquez Covered Member ID Vazquez Member ID Guarantor Name 07/26/2025 1 [facility] (MEDICARE REPLACEMENT/A DVANTAGE - PPO) [id number] Halina Willoughby [id number] Halina Willoughby Notes Date Note Type Note Provider Name and Address Organization Details Recorded Time 07/26/2025 text/html ROS as noted in the HPI Pt here today for spot(s) of concern Location: hand, lower lipDuration: 2 months, unsureSymptoms: burning Pt is due for a FBSE exam but declined. Wasn't aware she was supposed to get them every 6 months following a skin cancer Last skin cancer 08/2024 JENNIFER HIRSCH MD [facility] [place], [address], [facility] 07/26/2025 12:06:13 OBGyn Episode No OBEpisode recorded.
--- OUTSIDE RECORDS SUMMARY | 2025-08-03 08:28 | XMS_ITS | Data Portability ---
Author Organization ADRIA ESCOBAR Jackson TIOGA CLOSED Address [address] [place] [address] Care Team Providers Care Marketing Effectiveness Manager Name Role Phone FAWAD SHEPHERD Primary Care Provider JENNIFER DUTTON Logistics Operations Manager Assessment No assessment recorded. Plan of Treatment [...] acetonide 0.1 % topical ointment [address] [facility], [address], [address], 07/26/2025 11:30:04 mupirocin 2 % topical ointment [address] [facility], [address], [address], 12/07/2024 12:01:12 Patient TargetsNo targets recorded. Patient Instructions Encounter Date Encounter Id Patient Instructions Last Modified By Organization Details Last Modified Time 10/14/2024 [id number] Patient has no complaints at this time. Wound was treated with Silver Nitrate. Patient is to continue wound care and Vaseline until healed. She is scheduled back in a month for another follow up. Not available 10/15/2024 16:15:40 01/28/2025 [id number] Recommended returning to clinic in 6 months for FBSE [email or web address] Not available 01/28/2025 11:33:27 07/26/2025 [id number] Recommended returning to clinic in 6 months for FBSE Not available 2025 16:30:05 Reason for Referral None Reported. 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 AJCC: T1, Nx, Mx SOURC E OF SPECI MEN: 1) DAK CYST 2 SLIDE S, R DISTA L 4TH FINGE R 2) SKIN, L 2ND FINGE R CLINI HAYLIE INFOR MATIO N: A) R/O: SCC VS. CYST VS. OTHER B) R/O: VV VS. SCC VS. EDV VS. LP VS. OTHER Gross Descr iptio n: A) The speci men consi sted of a strickland fragm ent which was bisec jerardo and measu red 7 x 6 x 2 mm. All submi tted in one casse tte. B) The speci men consi sted of a strickland fragm ent which was bisec jerardo and measu red 6 x 5 x 2 mm. All submi tted in one casse tte. Micro scopi c Descr iptio n: A: Irreg ular islan ds and nests of cytol ogica lly atypi haylie kerat inizi ng epith elial cells infil trate the dermi s. B: Irreg ular islan ds and nests of cytol ogica lly atypi haylie kerat inizi ng epith elial cells infil trate the dermi s. ANTHONY DEL RIO MD Tiffani d Out Date: 08/19 11:31 1 Not Available [facility] [address], [place], [address], 08/19/2024 11:31:33 Result Notes None recorded. 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 Procedures Surgical History Date Name Laterality Status Provider Name and Address Organization Details Recorded Time 01/29/20 25 DAK - Cryo AK completed Elaina Hudson [facility] 01/28/2025 11:36:31 08/17/20 24 DAK - Biopsy, Tangential completed Elaina Hudson [facility] 08/17/2024 11:21:21 04/09/20 24 DAK - Cryo AK completed Elaina Hudson [facility] 04/09/2024 13:39:04 04/09/20 24 DAK - Biopsy, Tangential completed Elaina Hudson [facility] 04/09/2024 13:39:41 03/05/20 24 DAK - Cryo AK completed Elaina Hudson [facility] 03/05/2024 10:59:16 12/16/19 24 DAK - Cryo AK completed Elaina Hudson [facility] 12/16/2023 13:00:22 Mohs completed [facility] 12/16/2023 12:47:16 Appendectomy completed [facility] 12/16/2023 12:51:02 Imaging Results None recorded. Procedure Notes None recorded. Medical Equipment None Reported. Allergies Allergen ID Allergen Name Allergen Category Reaction Reaction Severity Criticality Documentation Date Start Date Code Code System Note Provider Name and Address Organization Details Recorded Time 574637 Substance with sulfonami de structure and antibacte rial mechanism of action (substanc e) medicatio n Not available Not available Not available 09/28/20162012 37263 8003 SNOMED Comme nt: Creat ed By: Tano Ballesteros ;Crea jerardo Date: 2012 7:57: 50 AM; Not Available [facility] 6 08:52:00 688050 Zocor medicatio n Not available Not available Not available 09/28/20162012 55988 3 RxNorm Comme nt: Creat ed By: Tano Ballesteros ;Crea jerardo Date: 2012 7:58: 33 AM; Not Available [facility] 6 08:52:00 452077 Motrin medicatio n Not available Not available Not available 09/28/20162012 41776 8 RxNorm Comme nt: Creat ed By: Tano Ballesteros ;Crea jerardo Date: 2012 7:58: 10 AM; Not Available [facility] 6 10:05:37 144553 Mevacor medicatio n Not available Not available Not available 09/28/20162012 32752 8 RxNorm Comme nt: Creat ed By: Tano Ballesteros ;Crea jerardo Date: 2012 7:58: 24 AM; Not Available [facility] 6 10:28:03 371642 Zetia medicatio n Not available Not available Not available 09/28/20162012 49381 9 RxNorm Comme nt: Creat ed By: Tano FishCrea jerardo Date: 2012 7:58: 51 AM; Not Available [facility] 6 10:41:11 964534 Valium medicatio n Not available Not available Not available 12/16/202360879 2 [facility] 4 13:03:33 201818 pravastat in medicatio n Not available Not available Not available 12/16/2023 77570 [facility] 13:03:40 Medications Name Sig Start [...] Of Your Most Recent Tobacco Screening? 03/05/2024 [email or web address] Information not available 03/05/2024 Sex: Unknown Functional Status Question Answer Note LastModified by Organization D etails LastModified Time Do you or have you ever used any other forms of tobacco or nicotine? No [email or web address] Information not available 03/05/2024 Mental Status None recorded. Family History Relationship Description Onset Age of this Age Resolved Age Notes LastModified by Organization Details LastModified Time Sister Malignant melanoma [email or web address] Not available 2023 12:47:09 Medical History Condition Response Basal Cell Carcinoma Y Gynecological HistoryNo gynecological history recorded. Obstetrics History GPAL:G 0 P 0 0 0 0 Past Encounters Encounter ID Performer Location Encounter Start Date Encounter Closed Date Diagnosis/Indication Diagnosis SNOMED-CT Code Diagnosis ICD10 Code Diagnosis IMO Codes Diagnosis Note [id number] JENNIFER HIRSCH MD [facility] [address] [address] 12/16/2023 12:43:57 12/16/2023 13:06:40 History of malignant neoplasm of skin 478223580 Z85.828 - No evidence of recurrence today- Call with any worrisome lesions or if treated lesions return- Return at regular intervals for skin exam as recommende d Most recent, 2014 Multiple b enign melanocytic nevi 504711159 D22.5 - Benign moles seen on exam today - SPF 30 or higher broad-spec trum sunscreen recommende d with re-applica tion every 2 hours - Discussed sun protection measures, including wide-brimm ed hat, sun-protec tive clothing, and avoidance of sun during peak hours of 10am-4pm - Avoid tanning beds as these can increase the chances of all 3 types of skin cancer - Instructed to monitor for changes and to call us for appointmen t with any changing or worrisome lesions Seborrheic keratosis 394 986709 L82.1 - Benign overgrowth s of skin - Hereditary Senile angioma 2084272 I 78.1 - Benign blood vessel growths - Hereditary Solar lentigo 49527872 L 81.4 - Benign brown spots - Sun-induce d Family his tory of malignant melanoma 763753096 Z80.8 Sisters Actinic keratosis L57.0 Actinic keratoses are precancero us lesions that may progress to squamous cell carcinoma if untreated. UV light and genetics may increase risk. Treated lesions should blister, scab over, and heal within a few weeks. If treated lesion(s) does not resolve within 1-2 months, patient agrees to follow up for re-evaluat ion. [id number] JENNIFER HIRSCH MD [address] [place] [address] 03/05/2024 10:18:47 03/05/2024 11:01:30 Actinic keratosis L57.0 Actinic keratoses are precancero us lesions that may progress to squamous cell carcinoma if untreated. UV light and genetics may increase risk. Treated lesions should blister, scab over, and heal within a few weeks. If treated lesion(s) does not resolve within 1-2 months, patient agrees to follow up for re-evaluat ion. [id number] JENNIFER HIRSCH MD [address] [place] [address] 04/09/2024 13:20:41 04/09/2024 13:41:31 Neoplasm of uncertain behavior of skin 25402276 D48.5 Frontal scalp - 1.2cm crusted plaque with pink base - R/o AK vs SCC (If AK, should be removed with bx) Actinic keratosis L57.0 Actinic keratoses are precancero us lesions that may progress to squamous cell carcinoma if untreated. UV light and genetics may increase risk. Treated lesions should blister, scab over, and heal within a few weeks. If treated lesion(s) does not resolve within 1-2 months, patient agrees to follow up for re-evaluat ion. [id number] JENNIFER HIRSCH MD [address] [place] [address] 08/17/2024 10:04:25 08/17/2024 11:34:06 Neoplasm of uncertain behavior of skin 71438291 D48.5 Patient reports recurrent since 4Pt has used tac, caused burning Will bx today R distal 4th finger - 1.3cm whitish pink nodule - R/o SCC vs Cyst vs OtherL 2nd finger - white scaly papules coalescing into plaques - R/o VV vs SCC vs EDV vs LP vs Other Seborrheic dermatitis 50 728133 L21.8 Seborrheic dermatitis can cause itching, redness and dandruff in the scalp, brows, facial folds and chest. A yeast naturally found on the skin can overgrow and cause this reaction in some people. The condition may wax and wane. K etoconazol e 2% cream BID prescribed .Will consider topical steroid if no improvemen t. Seborrheic keratosis 394 389264 L82.1 - Benign overgrowth s of skin- Hereditary [id number] SIRENA MCKEON MD [address] [place] [address] 09/09/2024 10:45:29 09/09/2024 12:41:25 [id number] SIRENA MCKEON MD [address] [place] [address] 09/16/2024 10:30:09 09/16/2024 13:33:53 [id number] SIRENA MCKEON MD [address] [facility] [place] [place] [address] 10/14/2024 11:49:18 10/14/2024 13:05:55 Postoperative visit 311527451 Z09 Scar 738431006 L90.5 History of squamous cell carcinoma of skin 350970223 Z85.828 No evidence of recurrence . Discussed risk of recurrence and new skin cancers, so regular self exam and profession al skin checks are recommende d. Sun protection with broad spectrum SPF 30 sunscreen and broad-brim med hat is recommende d. Sun protection with SPF 30 broad spectrum sunscreen and protective gear discussed. Abnormal g ranulation tissue 80588985 L92.9 Silver Nitrate was applied to wound bed on hyper-gran ulation tissue. [id number] MD [facility] [place] [address] [place] [place] [address] 12/07/2024 10:55:17 12/07/2024 11:18:49 History of malignant neoplasm of skin 174903427 Z85.828 - No evidence of recurrence today- Call with any worrisome lesions or if treated lesions return- Return at regular intervals for skin exam as recommende d Most recent, 08/2024 Melanocyti c nevus of face 102755941 D22.39 - Benign moles seen on exam today - SPF 30 or higher broad-spec trum sunscreen recommende d with re-applica tion every 2 hours - Discussed sun protection measures, including wide-brimm ed hat, sun-protec tive clothing, and avoidance of sun during peak hours of 10am-4pm - Instructed to monitor for changes and to call us for appointmen t with any changing or worrisome lesions Seborrheic keratosis 394 377642 L82.1 - Benign brown spots - Hereditary Solar lentigo 38203813 L 81.4 - Benign brown spots - Sun-induce d Family his tory of malignant melanoma 793013568 Z80.8 Sisters Nasal vestibulitis 78978 000 J34.89 Nature of the dx was explainedD iscsussed likely due to recurrent staph Will send in mupirocin 2% ointment to use TID to area around nose until healed Superficia l ulcer of skin 41126553 L98.499 Appears to be a scratch Rec vaseline throughout the day Pt will call if not healing [id number] MD [facility] [place] [address] [place] [address] 01/28/2025 10:50:45 01/28/2025 11:58:05 History of malignant neoplasm of skin 845786414 Z85.828 - No evidence of recurrence today- Call with any worrisome lesions or if treated lesions return- Return at regular intervals for skin exam as recommende d Most recent, 08/2024 Family his tory of malignant melanoma 444670285 Z80.8 Sisters Nasal vestibulitis 96469 000 J34.89 Nature of the dx was explainedd iscussed likely due to recurrent staph Pt has mupirocin 2% ointment to use TID to area around nose until healed when flaring Multiple b enign melanocytic nevi 441086955 D22.5 - Benign moles seen on exam today - SPF 30 or higher broad-spec trum sunscreen recommende d with re-applica tion every 2 hours - Discussed sun protection measures, including wide-brimm ed hat, sun-protec tive clothing, and avoidance of sun during peak hours of 10am-4pm - Instructed to monitor for changes and to call us for appointmen t with any changing or worrisome lesions Seborrheic keratosis 394 788185 L82.1 - Benign blood vessel growths - Hereditary Solar lentigo 16443055 L 81.4 - Benign brown spots - Sun-induce d Senile angioma 6258303 I 78.1 - Benign blood vessel growths - Hereditary Actinic keratosis 119601 007 L57.0 Actinic keratoses are precancero us lesions that may progress to squamous cell carcinoma if untreated. UV light and genetics may increase risk. Treated lesions should blister, scab over, and heal within a few weeks. If treated lesion(s) does not resolve within 1-2 months, patient agrees to follow up for re-evaluat ion. Varicose v eins of lower extremity 26110689 I83.93 Nature of the dx was explained Rec keeping vaseline on area when soreElevat e feet as much as possibleRe c compressio n hose See vascular surgeon if symptomati c [id number] JENNIFER HIRSCH MD [facility] [address] [place] [address] 07/26/2025 10:56:19 07/26/2025 11:30:20 Hand eczema 592651283 L30.9 459478 Nature of the diagnosis was discussed. Rx sent for triamcinol one acetonide 0.1% topical ointment to apply to hands BID for 1 week then take 1 week break. 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 Eruption 657188894 R21 45739 No visible condition today.Gema ent notes recent change in toothpaste helped rash subside.F/ u if rash reappears. Health Concerns Section Related Observation LastModified by Organization Detai ls LastModified Time None Recorded Concern Status LastModified by Organization Details LastModified Time None Recorded Advance Directives Directive None Recorded Payers Insurance Date Sequence Insurance Name Policy Number Policy Vazquez Covered Member ID Vazquez Member ID Guarantor Name 07/23/2025 [facility] ([facility]PLAC[facility]/A DVANTAGE - PPO) [id number] Halina Fartun [id number] Halina Willoughby Notes Date Note Type Note Provider Name and Address Organization Details Recorded Time 10/14/2024 text/html ROS as noted in the HPI Patient presents for a 1 month follow up s/p mohs surgery on 09/16/2024 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 [facility] 10/15/2024 16:20:13 12/07/2024 text/html Pt is here for skin lesions Location: nose, L eyebrowDuration: since 11/11/24Treatments: noneReports: spot on nose appeared around time pt got a cold 11/11/24, never healed JENNIFER HIRSCH MD [address] [place] [address], [address], [facility] 12/07/2024 12:19:39 01/28/2025 text/html ROS as noted in the HPI Here for a full body skin examination - last skin check: 12/2023 - history of skin cancer - BCC and SCC - last skin cancer was in 08/2024 - spots of concern today: none JENNIFER HIRSCH MD [facility] [place], [address], [facility] 02/01/2025 19:59:28 07/26/2025 text/html ROS as noted in the HPI Pt here today for spot(s) of concern Location: hand, lower lipDuration: 2 months, unsureSymptoms: burning Pt is due for a FBSE exam but declined. Wasn't aware she was supposed to get them every 6 months following a skin cancer Last skin cancer 08/2024 JENNIFER HIRSCH MD [address] [place], [address], [facility] 07/26/2025 12:06:13 OBGyn Episode No OBEpisode recorded.
--- NOTE | 2025-08-03 08:29 | HMH.EDGENADL ---
Discharge Plan Disposition Patient Disposition: Admitted Condition: Good Prescriptions Prescriptions: No Action loratadine 10 mg tablet 10 mg PO DAILY cholecalciferol (vitamin D3) 50 mcg (2,000 unit) capsule 50 mcg PO DAILY calcium carbonate 600 mg calcium (1,500 mg) tablet 600 mg PO DAILY ascorbic acid (vitamin C) 500 mg capsule 500 mg PO DAILY ketoconazole 2 % cream topical Patient Comments: APPLY 1 APPLICATION TOPICALLY 2 TIMES A DAY triamcinolone acetonide 0.5 % ointment topical meclizine 25 mg tablet 25 mg PO BID PRN Patient Comments: TAKE 1 TABLET BY MOUTH THREE TIMES DAILY NEEDED FOR 10 DAYS Gemtesa 75 mg tablet 75 mg PO DAILY Qty: 90 3RF furosemide [Lasix] 20 mg tablet 20 mg PO DAILY Qty: 90 2RF Eliquis 5 mg tablet 5 mg PO BID Qty: 180 3RF lisinopril 5 mg tablet 5 mg PO DAILY Qty: 90 3RF Referrals Follow up/Referrals: Kolton Wayne MD [Primary Care Provider, Internal Medicine] - See instructions Clinical Impressions Clinical Impression: Transient ischemic attack, Weakness on left side of face Print Language Print Language: Tamazight Discharge ED Provider: Marek García Adult HPI General Chief complaint: Neuro Symptoms/Deficit Stated complaint: States left side of face looks different Time Seen by Provider: 08/03/25 08:10 Mode of Arrival: Ambulatory Source of Information: Patient Description of Symptoms (Recalled from ER Triage Doc. by RN): Patient presents to ED from home with concerns for possible stroke. Patient states when she woke up ay 0630 this AM the left side of her face look different . Patient states she went to bed last night at 2200, reports her face was normal at that time. Slight left facial drooping noted upon assessment, no additional neurological deficits noted at this time. Dr. García to bedside during triage. Patient denies chest pain, denies SOA. History of Present Illness HPI narrative: This is an 85-year-old female patient, with past medical history of hypertension, hyperlipidemia, pulmonary arterial hypertension, and atrial fibrillation anticoagulated on Eliquis, who is presenting to the emergency department today for evaluation of left-sided facial drooping. Patient states that she was in her usual state of health yesterday evening upon going to bed at 10 PM (her last known well). This morning upon waking up she looked in the mirror at 6:30 AM and found that she had left-sided facial drooping. She did not have any problems with cognition, speech, weakness, or numbness in her body. She has not had any chest pain or shortness of breath. No recent viral symptoms. Related Data Home Medications ?Medication ?Instructions ?Recorded ?Confirmed ascorbic acid (vitamin C) 500 mg 500 mg PO DAILY 06/26/21 03/30/25 capsule calcium carbonate 600 mg PO DAILY 06/26/21 03/30/25 cholecalciferol (vitamin D3) 50 50 mcg PO DAILY 06/26/21 03/30/25 mcg (2,000 unit) capsule loratadine 10 mg tablet 10 mg PO DAILY 06/26/21 03/30/25 ketoconazole 2 % topical cream applic topical 03/10/24 03/30/25 triamcinolone acetonide 0.5 % topical 06/15/24 03/30/25 topical ointment meclizine 25 mg tablet 25 mg PO BID PRN 03/30/25 03/30/25 Previous Rx's ?Medication ?Instructions ?Recorded furosemide 20 mg tablet (Lasix) 20 mg PO DAILY #90 tabs 06/30/24 vibegron 75 mg tablet (Gemtesa) 75 mg PO DAILY #90 tabs 06/30/24 apixaban 5 mg tablet (Eliquis) 5 mg PO BID #180 tabs 07/10/24 lisinopril 5 mg tablet 5 mg PO DAILY #90 tabs 07/10/24 Allergies Allergy/AdvReac Type Severity Reaction Status Date / Time diazepam (From Valium) AdvReac dizziness Verified 03/30/25 12:53 ezetimibe (From Zetia) AdvReac swelling Verified 03/30/25 12:53 ibuprofen (From Motrin) AdvReac bleeding Verified 03/30/25 12:53 lovastatin (From Mevacor) AdvReac itching Verified 03/30/25 12:53 pravastatin AdvReac swelling Verified 03/30/25 12:53 simvastatin (From Zocor) AdvReac itching Verified 03/30/25 12:53 Sulfa (Sulfonamide AdvReac sycope Verified 03/30/25 12:53 Antibiotics) [facility] Disclaimer: The information contained in this section may have been updated after the patient was seen, as this information can be updated by other users. Medical History OAB (overactive bladder) Anxiety History of anemia Pulmonary arterial hypertension HLD (hyperlipidemia) HTN (hypertension) Atrial fibrillation Social History Smoking Status: Never smoker alcohol intake: never substance use type: denies use current occupational status: other Travel in the last 8 weeks?: Inside the [place] Have you lived/traveled outside US in past 30 days?: No Contact w/someone who lives/traveled outside US past 30 days?: No Exposure to someone with infectious disease in past 14 days?: No Do you have a fever (greater than 100.4 F or 38 C)?: No Have you tested positive for COVID-19?: No Exposed to someone with COVID-19 in past 14 days?: No Do you have a sore throat?: No Do you have a cough?: No Do you have any weakness?: No Do you have any diarrhea?: No Are you experiencing any unusual bleeding?: No Do you have any muscle aches/pain?: No Do you have any abdominal pain?: No Are you experiencing loss of taste or smell?: No Other Medical History Have you received the Pneumonia Vaccine: Yes ROS Obtained: Yes Systems reviewed as appropriate & no additional complaints except as documented Physical Exam General General appearance: other (See MDM) Respiratory Respiratory exam: Present other (See MDM) Cardiovascular Cardiovascular exam: Present other (See MDM) Neurological Exam Neurological exam: Present other (See MDM) Medical Decision Making Medical Records Medical records reviewed: Yes I reviewed the patient's medical records. Screening: Per USPSTF and CDC recommendations, given the prevalence of disease in our region, it is our hospital?s policy to screen for HIV and viral Hepatitis for all patients aged 18 and over and those with ongoing risk factors. Pk Inquiry Pt receiving controlled substance: No Pk was queried for this patient: No Vital Signs: 08/03/25 08:17 08/03/25 08:22 08/03/25 08:46 Temperature 98.3 F Temperature Source Oral Pulse Rate 85 84 Pulse Rate [Left] 85 Respiratory Rate 19 19 16 Blood Pressure 182/81 H Blood Pressure [Right Arm] 178/68 H Blood Pressure Mean 111 Blood Pressure Mean [Right Arm] 104 Blood Pressure Source [Right Arm] Automatic Cuff Blood Pressure Position [Right Arm] Sitting 02 Sat by Pulse Oximetry 98 95 98 Oxygen Delivery Method Room Air Room Air Room Air 08/03/25 09:00 08/03/25 09:30 Temperature Temperature Source Pulse Rate 86 83 Pulse Rate [Left] Respiratory Rate 16 16 Blood Pressure 167/80 H 151/77 H Blood Pressure [Right Arm] Blood Pressure Mean 109 101 Blood Pressure Mean [Right Arm] Blood Pressure Source [Right Arm] Blood Pressure Position [Right Arm] 02 Sat by Pulse Oximetry 99 98 Oxygen Delivery Method Room Air Room Air Lab Data Lab Results 08/03/25 08:30: WBC 4.9, RBC 3.28 L, Hgb 10.1 L, Hct 30.3 L, MCV 92.4, MCH 30.8, MCHC 33.3, RDW 13.9, Plt Count 199, MPV 10.5 H, Neut % (Auto) 68.2, Lymph % (Auto) 19.7, Meeker % (Auto) 9.0, Eos % (Auto) 2.5, Baso % (Auto) 0.4, Neut # (Auto) 3.3, Lymph # (Auto) 1.0, Meeker # (Auto) 0.4, Eos # (Auto) 0.1, Baso # (Auto) 0.0, PT 11.5, INR 1.04, APTT 28.2, Sodium 132 L, Potassium 4.2, Chloride 96 L, Carbon Dioxide 29, Anion Gap 11.2, BUN 21 H, Creatinine 0.90, Estimated Creat Clear 44, Estimated GFR 60, Est GFR ( Amer) 72, Glucose 92, Calcium 9.4, Total Bilirubin 0.3, AST 33, ALT 23, Alkaline Phosphatase 72, Troponin I < 0.01, Total Protein 7.0, Albumin 4.3, Globulin 2.7, Albumin/Globulin Ratio 1.6, Triglycerides 62, Cholesterol 157, LDL Cholesterol Direct 60.45 L, VLDL Cholesterol 12, HDL Cholesterol 64 H, Cholesterol/HDL Ratio 2.5, Plasma/Serum Alcohol < 10 08/03/25 08:30 08/03/25 08:30 Orders (Tests/Meds): ED MEDICATIONS Generic Name Dose Route Start Last Admin Trade Name Freq PRN Reason Stop Dose Admin Sodium Chloride 10 ml 08/03/25 08:22 Sodium Chloride 0.9% 10ml Flush Syringe IV 09/02/25 08:21 NEEDED PRN Maintain IV Site Discontinued Medications Generic Name Dose Route Start Last Admin Trade Name William PRN Reason Stop Dose Admin Iopamidol 80 ml 08/03/25 08:30 08/03/25 08:31 Iopamidol-370 (76%);100ml Bottle IV 08/03/25 08:31 80 ml ONCE ONE Administration Sodium Chloride 50 ml 08/03/25 08:30 08/03/25 08:31 0.9 % Sodium Chloride 50 Ml Vial IV 08/03/25 08:31 50 ml ONCE ONE Administration Sodium Chloride 10 ml 08/03/25 08:30 08/03/25 08:31 Sodium Chloride 0.9% 10ml Syr (Rad Only) IV 08/03/25 08:31 10 ml ONCE ONE Administration ORDERS Category Date Time Status CT angio head Stat Cat Scan 08/03/25 08:[address] angio neck Stat Cat Scan 08/03/25 08:[address] head/brain wo con Stat Cat Scan 08/03/25 08:22 Completed Activated Partial Thrombo Time Stat Lab 08/03/25 08:30 Completed Complete Blood Count Auto Diff Stat Lab 08/03/25 08:30 Completed Comprehensive Metabolic Panel Stat Lab 08/03/25 08:30 Completed Drug Screen,Urine Stat Lab 08/03/25 09:13 Received Ethyl Alcohol Stat Lab 08/03/25 08:30 Completed Lipid Panel Stat Lab 08/03/25 08:30 Completed Prothrombin Time INR Stat Lab 08/03/25 08:30 Completed Troponin I Q3H Lab 08/03/25 11:30 Ordered Troponin I Q3H Lab 08/03/25 14:30 Ordered Troponin I Stat Lab 08/03/25 08:30 Completed Urinalysis and Microscopic Stat Lab 08/03/25 09:12 Received ECG Request Stat Y 08/03/25 08:22 Ordered ECG Data Tracing #1: I reviewed this ECG and interpreted as documented below: EKG personally interpreted by me demonstrates atrial fibrillation with a rate of 79 bpm, normal axis, narrow QRS, no QTc prolongation. No ST elevation or depression. No overt signs of ischemia. Medical Decision Narrative: In summary, this is an 85-year-old female patient who is presenting to the emergency department today for evaluation of left-sided facial drooping with a last known normal time of 10 PM last night before going to bed. Symptoms were first noticed this morning at around 630 upon waking. Her comorbidities include a history of pulmonary arterial hypertension, systemic hypertension, hyperlipidemia, and atrial fibrillation anticoagulated on Eliquis. On initial evaluation of the patient she was resting comfortably in no acute distress and was nontoxic in appearance. She is hemodynamically stable and saturating well on room air. On physical examination she does have a very mild left-sided facial droop/loss of nasolabial fold with sparing of the left forehead. She is alert and oriented x 4. She has no speech or language deficits. Finger-nose testing is normal bilaterally. She has 5 out of 5 strength in her bilateral upper and lower extremities. No evidence of extinction. NIH is 1 for minor paralysis of the left lower face. Differential diagnosis includes ischemic stroke, large vascular occlusion, hemorrhagic stroke, electrolyte derangement, among others. This presentation is not consistent with Bertrand's palsy as she has sparing of the left forehead. Initial interventions included hematologic labs as well as a CTA of the head and neck and CT head without contrast. Labs personally interpreted by me demonstrate no actionable normality. Troponins are pending. CT head without contrast personally interpreted by me demonstrates no large intracranial hemorrhages. Official radiology read is in agreement and states that there is no acute abnormality. CTA of the head and neck was interpreted by radiology and demonstrates no vascular stenosis or occlusion On repeat assessment of the patient she tells me that she feels subjectively that her symptoms have improved. There does appear to be more tone present in the left side of the face. This prompts me to believe that her symptoms are more consistent with a transient ischemic attack. Her ABCD2 score is 6. I do feel that she would benefit for admission to the hospital for further workup with echocardiogram and MRI. I have had an interactive discussion with the internal medicine service who has agreed to evaluate the patient the emergency department. After our discussion of their evaluation they have agreed to admit the patient to their service and accept primary responsibility of the patient moving forward. Critical Care Critical Care Time Critical Care Time: No
[2025-08-03] MEDS: IOPAMIDOL-370 (76%);100ML BOTTLE 80 ML IV (08:31)
[2025-08-03] MEDS: SODIUM CHLORIDE 0.9% 10ML SYR (RAD ONLY) 10 ML IV (08:31)
[2025-08-03] MEDS: 0.9 % SODIUM CHLORIDE 50 ML VIAL IV (08:31)
--- NOTE | 2025-08-03 08:44 | ECG_ITS ---
APPROVED REPORT Exam: Resting ECG HR:79 bpm ECG Measurements Heart Rate 79 AXES QRSd 82 QRS 74 QT 382 T 76 QTc 417 Conclusion Atrial fibrillation Normal axis Narrow QRS No QTc prolongation No STEMI Electronically signed by : Marek García, 08/03/2025 15:20:54
[2025-08-03 08:56] LABS: Hematocrit 30.3 % (37.0-47.0); Hemoglobin 10.1 g/dL (12.2-16.2); Immature Granulocytes % 0.2 %; Mean Corpuscular HGB Conc 33.3 g/dL (31.8-35.4); Mean Corpuscular Hemoglobin 30.8 pg (27.0-31.2); Mean Corpuscular Volume 92.4 fl (81-99); Nucleated Red Blood Cells % 0 %; Platelet Count 199 K/mm3 (142-424); Red Blood Count 3.28 M/mm3 (4.20-5.40); Red Cell Distribution Width-SD 46.7 fL; White Blood Count 4.9 K/mm3 (4.8-10.8)
[2025-08-03 09:06] LABS: Alanine Aminotransferase 23 U/L (12-78); Albumin Level 4.3 g/dl (3.5-5.0); Albumin/Globulin Ratio 1.6 (1.1-1.8); Alkaline Phosphatase 72 U/L (38-126); Anion Gap 11.2 mEq/L (5-15); Aspartate Amino Transferase 33 U/L (14-36); Bilirubin,Total 0.3 mg/dl (0.2-1.3); Blood Urea Nitrogen 21 mg/dl (7-17); Calcium 9.4 mg/dl (8.4-10.2); Carbon Dioxide 29 mmol/L (22.0-30.0); Chloride 96 mmol/L (98-107); Cholesterol 157 mg/dl (140-200); Creatinine Clearance Estimated 44 mL/min (50-200); Creatinine,Serum 0.90 mg/dl (0.52-1.04); Estimated Glomerular Filt Rate 60 ml/min (>60); GFR (African American) 72 ML/MIN (>60); Globulin 2.7 g/dL (1.3-3.2); Glucose 92 mg/dl (74-100); HDL Cholesterol 64 mg/dl (40-60); Potassium 4.2 mmoL/L (3.5-5.1); Sodium 132 mmol/L (136-145); Total Protein,Serum 7.0 g/dl (6.3-8.2); Triglycerides 62 mg/dl (30-150)
[2025-08-03 09:10] LABS: Activated Partial Thrombo Time 28.2 seconds (22.8-30.6); INR 1.04 (0.9-1.1); Prothrombin Time 11.5 seconds (10.1-12.5)
[2025-08-03 09:16] LABS: Microscopic, Urine URINE MICROSCOPIC (MICROSCOPIC)
[2025-08-03 09:25] LABS: Troponin I < 0.01 ng/ml (0.00-0.034)
--- NOTE | 2025-08-03 09:45 | PC.NURSE ---
supervisor adult education contacted for bed.
--- NOTE | 2025-08-03 09:57 | MR_ITS ---
FINAL REPORT TECHNIQUE: Multiplanar MR, without contrast administration CLINICAL HISTORY: TIA FINDINGS: Diffusion sequences show no signal abnormalities to indicate acute infarct. The midline structures appear intact. There is moderate scattered foci of abnormal signal in the periventricular and subcortical white matter. Ventricles are normal. No edema or hemorrhage is seen. Major vessel flow-voids are intact. The paranasal sinuses demonstrate normal signal voids. The 7th and 8th nerve root complexes are intact. IMPRESSION: Moderate changes of chronic microvascular ischemia. Reviewed, Interpreted and Dictated by Clark Kaba MD Transcribed by Lynnette Vinson Authenticated and [facility]
--- NOTE | 2025-08-03 09:57 | CA_ITS ---
APPROVED REPORT EXAM: Comprehensive 2D, Doppler, and color-flow Echocardiogram Advertising Sales Executive: Chayo Lira RVT Ht: 5 ft 5 in Wt: 145lbs BSA: 1.73 BP: 151/77 mmHg Indications: TIA 2D Dimensions LA Volume 81.80 mL LA Volume Index 47.28 mL/m2 (M/F) 16-34 M-Mode Dimensions RVDd 3.32 cm (0.9-2.6) LA Diam 4.25 cm (1.9-4.0) LVDd 4.68 cm (3.5-5.7) LVDs 3.29 cm (3.5-5.7) IVSd 0.96 cm (0.6-1.1) PWd 0.46 cm (0.6-1.1) EF (Teich) 56.80% FS 29.70% EDV (Teich) 101.30 mL TAPSE 1.25 (<1.7) ESV (Teich) 43.80 mL LV Diastology E Decel Time 177 (160-240 msec) E/A Ratio 2.3 Aortic Valve ZAHEER Index 0.96 cm2/m2 AoV Peak Jovany. 253.0 (50-130 cm/s) AO Peak GR. 25.70 mmHg AO Mean GR. 16.50 (<5 mmHg) AO VTI 60.2 (18-25 cm) ZAHEER (VTI) 1.70 (2.5-4.5 cm2) Mitral Valve MV E Max Jovany. 108.0 (40-130 cm/s) MV A Velocity 48.0 (40-130 cm/s) E/A Ratio 2.23 MV PHT 52.0 ms Pulmonary Valve PV Peak Velocity 67.0 (50-150 cm/s) Tricuspid Valve TR P. Velocity 353.00 cm/s RAP Estimate 8.00 mmHg RVSP 57.70 mmHg Left Ventricle The left ventricle is normal size. Left ventricular systolic function is low normal. There is increased left ventricular wall thickness. There is normal LV segmental wall motion. Grade 3 diastolic dysfunction is present. LVEF is 50% Right Ventricle The right ventricle is moderately to severely dilated. The right ventricular systolic function is mildly reduced. Atria The left atrium is severely dilated. The right atrium is severely dilated. There is no color Doppler evidence of interatrial shunt. Aortic Valve The aortic valve is moderately thickened. Mild to moderate aortic stenosis is present. ZAHEER by continuity equation is 1.5 cm???. Peak velocity 2.8 m/s. Mean AV gradient 18 mmHg. Max AV gradient 24 mmHg. Trace aortic regurgitation is present. Mitral Valve The mitral valve is mildly thickened. No evidence of mitral valve stenosis. Mild mitral regurgitation is present. Tricuspid Valve The tricuspid valve leaflets are thin and pliable. Moderate to severe tricuspid regurgitation. RVSP is 50-55 mmHg. Pulmonic Valve The pulmonary valve is grossly normal in structure. Mild pulmonic valve regurgitation is present. Great Vessels The aortic root is normal in size. IVC is normal in size and collapses >50% with inspiration. Pericardium There is no pericardial effusion. Other Information Study Quality: Fair Conclusion Low normal LV systolic function (LVEF 50%). Grade 3 diastolic dysfunction. Moderate to severe RV dilation with mild reduction in RV function. Severe biatrial dilation. Mild to moderate (ZAHEER by continuity equation is 1.5 cm???. Peak velocity 2.8 m/s. Mean AV gradient 18 mmHg. Max AV gradient 24 mmHg). Moderate to severe TR. Mild MR, mild PI. Markedly elevated RVSP 50-55 mmHg. Electronically signed by : Melissa Trevino MD 08/03/2025 12:54:28
[2025-08-03 10:00] LABS: Bilirubin,Urine Negative (Negative); Color,Urine YELLOW (Yellow); Glucose,Urine (UA) Negative (Negative); Ketones,Urine Negative (Negative); Leukocyte Esterase,Urine Negative (Negative); PH,Urine 5.5 (5.0-8.5); Protein,Urine Negative (Negative); Specific Gravity, Urine <= 1.005 (1.005-1.030); Urobilinogen,Urine 0.2 EU/dl (0.2)
[2025-08-03 10:15] LABS: Amphetamine/Metha Screen,Urine Negative ng/ml (<1000); Barbiturates Screen,Urine Negative ng/ml (<200)
[2025-08-03 10:16] LABS: Benzodiazepines Screen,Urine Negative ng/ml (<200)
[2025-08-03 10:18] LABS: Methadone Screen,Urine Negative ng/ml (<300)
[2025-08-03 10:19] LABS: Opiate Screen,Urine Negative ng/ml (<300); Phencyclidine Screen,Urine Negative ng/ml (<25)
--- NOTE | 2025-08-03 10:22 | PC.NURSE ---
Patient report called to JAGDISH Mercado
[2025-08-03] MEDS: CLOPIDOGREL 75MG TAB 75 MG PO (10:39)
--- NOTE | 2025-08-03 12:11 | P.HPDS_ITS ---
<Statement entered by Marlon Cross MD - 08/03/25 16:45> Rounded on patient after nurse practitioner. Personally examined and interviewed patient. Agree with exam findings and care plan as documented. General Admission date:: 08/03/25 Discharge date: 08/03/25 *Admission Date: 08/03/25 *Chief complaint: left side of face looks different *History of present illness: Ms. Willoughby is a 85-year-old female who presented to the emergency department this morning with new onset left sided facial droop. She has a primary medical history of hypertension, hyperlipidemia, A-fib, OAB, arthritis. She states she went to bed last night around 10 PM and when she woke up this morning around 6:30 in the morning she noticed her left side of her mouth was drooping. She drove herself to the emergency department where workup was done. She denied problems with cognition, speech, weakness, or numbness in her body. Denies shortness of breath, chest pain, abdominal pain, cough, congestion, fever, chills. NIH score was minor for paralysis of left lower face. She had 5/5 strength in bilateral upper and lower extremities. She is alert and oriented x 4. CT of head without contrast showed no intracranial hemorrhages, CTA of head and neck both showed no vascular stenosis or occlusion. [facility] Disclaimer: The information contained in this section may have been updated after the patient was seen, as this information can be updated by other users. Medical History (Updated 08/03/25 @ 15:04 by Mariella Modi APRN) History of skin cancer OAB (overactive bladder) Anxiety History of anemia Pulmonary arterial hypertension HLD (hyperlipidemia) HTN (hypertension) Atrial fibrillation Surgical History (Updated 08/03/25 @ 12:09 by Alida Byrd, JAGDISH) History of cataract surgery Social History (Updated 08/03/25 @ 12:09 by Alida Byrd RN) Smoking Status: Never smoker alcohol intake: never substance use type: denies use current occupational status: other Travel in the last 8 weeks?: Inside the [place] Have you lived/traveled outside US in past 30 days?: No Contact w/someone who lives/traveled outside US past 30 days?: No Exposure to someone with infectious disease in past 14 days?: No Do you have a fever (greater than 100.4 F or 38 C)?: No Have you tested positive for COVID-19?: No Exposed to someone with COVID-19 in past 14 days?: No Do you have a sore throat?: No Do you have a cough?: No Do you have any weakness?: No Are you experiencing any nausea/vomitting?: No Do you have any diarrhea?: No Are you experiencing any unusual bleeding?: No Do you have any muscle aches/pain?: No Do you have any abdominal pain?: No Are you experiencing loss of taste or smell?: No Other Medical History Have you received the Flu Vaccine for this season: Yes Have you received the Pneumonia Vaccine: Yes Review of Systems Constitutional Constitutional: Denies chills, Denies fatigue and Denies fever(s) Eyes Eyes: Denies blurry vision and Denies change in vision ENT Ears, Nose, Mouth, and Throat: Denies dizziness, Denies sinus pressure and Denies sore throat *Cardiovascular Cardiovascular: Denies chest pain, Denies dyspnea and Denies palpitations *Respiratory Respiratory: Denies cough and Denies dyspnea *Gastrointestinal Gastrointestinal: Denies abdominal pain, Denies constipation and Denies loose stools *Genitourinary Genitourinary: Denies dysuria *Musculoskeletal Musculoskeletal: Denies abnormal gait *Neurologic Neurologic: Denies abnormal gait, Denies abnormal speech, Denies confusion, Denies dizziness and Reports localized weakness (Left lower face) Psychiatric Psychiatric: Denies confusion Endocrine Endocrine: Denies fatigue and Denies palpitations Exam Data for Last 24 hours Vital signs and Labs for Last 24 Hours: Temp Pulse Resp BP Pulse Ox O2 Del Method 97.5 F L 77 18 152/88 H 98 Room Air 08/03/25 11:15 08/03/25 11:15 08/03/25 11:15 08/03/25 11:15 08/03/25 11:15 08/03/25 11:15 Laboratory Results - last 24 hr 08/03/25 08:30: WBC 4.9, RBC 3.28 L, Hgb 10.1 L, Hct 30.3 L, MCV 92.4, MCH 30.8, MCHC 33.3, RDW 13.9, Plt Count 199, MPV 10.5 H, Neut % (Auto) 68.2, Lymph % (Auto) 19.7, [place] % (Auto) 9.0, Eos % (Auto) 2.5, Baso % (Auto) 0.4, Neut # (Auto) 3.3, Lymph # (Auto) 1.0, [place] # (Auto) 0.4, Eos # (Auto) 0.1, Baso # (Auto) 0.0, PT 11.5, INR 1.04, APTT 28.2, Sodium 132 L, Potassium 4.2, Chloride 96 L, Carbon Dioxide 29, Anion Gap 11.2, BUN 21 H, Creatinine 0.90, Estimated Creat Clear 44, Estimated GFR 60, Est GFR ( Amer) 72, Glucose 92, Calcium 9.4, Total Bilirubin 0.3, AST 33, ALT 23, Alkaline Phosphatase 72, Troponin I < 0.01, Total Protein 7.0, Albumin 4.3, Globulin 2.7, Albumin/Globulin Ratio 1.6, Triglycerides 62, Cholesterol 157, LDL Cholesterol Direct 60.45 L, VLDL Cholesterol 12, HDL Cholesterol 64 H, Cholesterol/HDL Ratio 2.5, Plasma/Serum Alcohol < 10 08/03/25 09:12: Urine Color Yellow, Urine Appearance Clear, Urine pH 5.5, Ur Specific Alexander <= 1.005, Urine Protein Negative, Urine Glucose (UA) Negative, Urine Ketones Negative, Urine Blood Negative, Urine Nitrate Negative, Urine Bilirubin Negative, Urine Urobilinogen 0.2, Ur Leukocyte Esterase Negative, Urine RBC None, Urine WBC None, Ur Squamous Epith Cells None, Urine Bacteria No ne 08/03/25 09:13: Urine Opiates Screen Negative, Urine Methadone Screen Negative, Ur Barbituates Screen Negative, Ur Phencyclidine Scrn Negative, Ur Amphetamines Screen Negative, U Benzodiazepines Scrn Negative, Urine Cocaine Screen Negative, U Marijuana (THC) Screen Negative I & O for Last 24 hours: Intake & Output 07/31/25 08/01/25 08/02/25 08/03/25 23:59 23:59 23:59 23:59 Output Total 0 / 0 Balance 0 / 0 Weight 67.767 kg Constitutional Constitutional: no acute distress, average body habitus and cooperative *Routine HEENT Exam Head: Present normocephalic Eye: Present EOMI ENT: Present mucous membranes moist *Routine Neck Exam Neck: Present supple; Absent JVD *Routine Respiratory Exam Respiratory: Present CTA bilaterally, able to speak in complete sentences and symmetric chest movement; Absent wheezes or crackles *Routine Cardiovascular Exam Cardiovascular: Present RRR; Absent murmur *Routine Abdominal Exam Abdominal: Present soft and normoactive bowel sounds; Absent tenderness *Routine Rectal Exam Rectal:: deferred *Routine Genitalia Exam Genitalia:: deferred *Routine Extremities Exam Extremities: Present full ROM and pulses intact; Absent edema *Routine Skin Exam Skin: Present intact and dry; Absent rash *Routine Neurological Exam Neurological: Present alert and oriented X3 Meds Home Medications and Allergies Home Medications ?Medication ?Instructions ?Recorded ?Confirmed ?Type ascorbic acid (vitamin C) 500 mg 500 mg PO DAILY 06/2608/03/25 History capsule cholecalciferol (vitamin D3) 50 50 mcg PO DAILY 08/03/25 History mcg (2,000 unit) capsule loratadine 10 mg tablet 10 mg PO DAILY 06/26/2107/07 History vibegron 75 mg tablet (Gemtesa) 75 mg PO DAILY #90 tab s 06/30/24 08/03/25 Rx apixaban 5 mg tablet (Eliquis) 5 mg PO BID #180 tabs 0 07/10/24 08/03/25 Rx atorvastatin 40 mg tablet (Lipitor) 40 mg PO HS #30 ta bs 08/03/25 Rx clopidogrel 75 mg tablet 75 mg PO DAILY 20 days #20 t abs 08/03/25 Rx furosemide 20 mg tablet (Lasix) 40 mg (2 x 20 mg) PO D AILY #90 tabs 08/03/25 08/03/25 Rx lisinopril 10 mg tablet 10 mg PO DAILY #30 tabs 07/07 Rx New Prescriptions to Start Prescriptions: atorvastatin [Lipitor] Mariella Modi clopidogrel Mariella Modi lisinopril Mariella Modi Allergies Allergy/AdvReac Type Severity Reaction Status Date / Time diazepam (From Valium) AdvReac dizziness Verified 03/30/25 12:53 ezetimibe (From Zetia) AdvReac swelling Verified 03/30/25 12:53 ibuprofen (From Motrin) AdvReac bleeding Verified 03/30/25 12:53 lovastatin (From Mevacor) AdvReac itching Verified 03/30/25 12:53 pravastatin AdvReac swelling Verified 03/30/25 12:53 simvastatin (From Zocor) AdvReac itching Verified 03/30/25 12:53 Sulfa (Sulfonamide AdvReac sycope Verified 03/30/25 12:53 Antibiotics) Hospital Course Hospital Course Hospital Course: Ms. Willoughby is a 85-year-old female who presented to the emergency department this morning with new onset left sided facial droop. She has a primary medical history of hypertension, hyperlipidemia, A-fib, OAB, arthritis. She states she went to bed last night around 10 PM and when she woke up this morning around 6:30 in the morning she noticed her left side of her mouth was drooping. She drove herself to the emergency department where workup was done. She denied problems with cognition, speech, weakness, or numbness in her body. Denies shortness of breath, chest pain, abdominal pain, cough, congestion, fever, chills. NIH score was minor for paralysis of left lower face. She had 5/5 strength in bilateral upper and lower extremities. She is alert and oriented x 4. CT of head without contrast showed no intracranial hemorrhages, CTA of head and neck both showed no vascular stenosis or occlusion. Discussion was had with neurology who recommends Continued patient assessment revealed she does feel better but necessitates a echo and MRI for further TIA workup. Her ABCD2 score in the emergency department is 6. I was consulted by the emergency department, Dr. García, who requested admission for further workup for TIA. I agreed to admit the patient for observation. Upon my evaluation of the patient her symptoms have since improved. No left-sided facial droop or unilateral weakness noted. Patient states she feels back to her baseline. Upon admission ABCD2 score is 3 (scoring for hypertension, age, and length of symptoms). Patient currently takes Eliquis 5 mg twice daily for her A-fib, atorvastatin 20 mg at bedtime, lisinopril 5 mg daily, and furosemide 20 mg daily. Will additionally add Plavix 75 mg daily to complete a course of 21 days, increase atorvastatin to 40 mg at bedtime and increase lisinopril to 10 mg daily. Echocardiogram shows LVEF 50%, grade 3 diastolic dysfunction, moderate to severe RV dilation, severe biatrial dilation, mild to moderate , moderate to severe TR, markedly elevated RVSP 50-55. Patient should follow-up with cardiology in the next 1 to 2 weeks for further evaluation and management. Patient already follows with [facility] cardiology. Will increase furosemide to 40 mg daily due to elevated RVSP. Brain MRI shows moderate changes of chronic microvascular ischemia, no acute infarct. Patient assessment continues to show no neurodeficits. Patient feels well, alert and oriented, ambulating in the room without difficulty. Patient at this time is safe to discharge home with medication changes and close outpatient follow-up. Total time spent on discharge 32 minutes in counseling, documentation, chart review, and direct care with patient. Results Data Completed and Pending Labs on day of discharge: Labs from last 24 hours 08/03/25 08/03/25 08/03/25 09:13 09:12 08:30 WBC 4.9 RBC 3.28 L Hgb 10.1 L Hct 30.3 L MCV 92.4 MCH 30.8 MCHC 33.3 RDW 13.9 Plt Count 199 MPV 10.5 H Neut % (Auto) 68.2 Lymph % (Auto) 19.7 [place] % (Auto) 9.0 Eos % (Auto) 2.5 Baso % (Auto) 0.4 Neut # (Auto) 3.3 Lymph # (Auto) 1.0 [place] # (Auto) 0.4 Eos # (Auto) 0.1 Baso # (Auto) 0.0 PT 11.5 INR 1.04 APTT 28.2 Sodium 132 L Potassium 4.2 Chloride 96 L Carbon Dioxide 29 Anion Gap 11.2 BUN 21 H Creatinine 0.90 Estimated Creat Clear 44 Estimated GFR 60 Est GFR ( Amer) 72 Glucose 92 Calcium 9.4 Total Bilirubin 0.3 AST 33 ALT 23 Alkaline Phosphatase 72 Troponin I < 0.01 Total Protein 7.0 Albumin 4.3 Globulin 2.7 Albumin/Globulin Ratio 1.6 Triglycerides 62 Cholesterol 157 LDL Cholesterol Direct 60.45 L VLDL Cholesterol 12 HDL Cholesterol 64 H Cholesterol/HDL Ratio 2.5 Urine Color Yellow Urine Appearance Clear Urine pH 5.5 Ur Specific Alexander <= 1.005 Urine Protein Negative Urine Glucose (UA) Negative Urine Ketones Negative Urine Blood Negative Urine Nitrate Negative Urine Bilirubin Negative Urine Urobilinogen 0.2 Ur Leukocyte Esterase Negative Urine RBC None Urine WBC None Ur Squamous Epith Cells None Urine Bacteria None Urine Opiates Screen Negative Urine Methadone Screen Negative Ur Barbituates Screen Negative Ur Phencyclidine Scrn Negative Ur Amphetamines Screen Negative U Benzodiazepines Scrn Negative Urine Cocaine Screen Negative U Marijuana (THC) Screen Negative Plasma/Serum Alcohol < 10 DS: Diagnosis Discharge Diagnosis (1) Transient ischemic attack: Status: Acute Code(s): G45.9 - Transient cerebral ischemic attack, unspecified (2) Weakness on left side of face: Status: Acute Code(s): R29.810 - Facial weakness (3) Atrial fibrillation: Status: Chronic Code(s): I48.91 - Unspecified atrial fibrillation Qualifiers: Atrial fibrillation type: unspecified chronic Qualified Code(s): I48.20 - Chronic atrial fibrillation, unspecified (4) HTN (hypertension): Status: Chronic Code(s): I10 - Essential (primary) hypertension Qualifiers: Hypertension type: primary hypertension Qualified Code(s): I10 - Essential (primary) hypertension (5) HLD (hyperlipidemia): Status: Chronic Code(s): E78.5 - Hyperlipidemia, unspecified Qualifiers: Hyperlipidemia type: mixed hyperlipidemia Qualified Code(s): E78.2 - Mixed hyperlipidemia (6) Pulmonary arterial hypertension: Status: Chronic Code(s): I27.21 - Secondary pulmonary arterial hypertension (7) Grade III diastolic dysfunction: Status: Acute Code(s): I51.89 - Other ill-defined heart diseases Discharge Plan Disposition Patient Disposition: Home, Self-Care Condition: Good Follow up Plan Follow up with: Dylon Trevino MD [Staff Physician, Cardiology] - Enter time for follow up Kolton Wayne MD [Primary Care Provider, Internal Medicine] - Enter time for follow up Prescriptions/Medication Reconciliation: New clopidogrel 75 mg Tablet 75 mg PO DAILY 20 Days Qty: 20 0RF lisinopril 10 mg tablet 10 mg PO DAILY Qty: 30 0RF atorvastatin [Lipitor] 40 mg tablet 40 mg PO HS Qty: 30 0RF Continued loratadine 10 mg tablet 10 mg PO DAILY cholecalciferol (vitamin D3) 50 mcg (2,000 unit) capsule 50 mcg PO DAILY ascorbic acid (vitamin C) 500 mg capsule 500 mg PO DAILY Gemtesa 75 mg tablet 75 mg PO DAILY Qty: 90 3RF Eliquis 5 mg tablet 5 mg PO BID Qty: 180 3RF Changed furosemide [Lasix] 20 mg tablet 40 mg PO DAILY Qty: 90 2RF Discontinued lisinopril 5 mg tablet 5 mg PO DAILY Qty: 90 3RF atorvastatin 20 mg tablet 20 mg PO HS Problem Reconciliation Problems Reviewed?: Yes Patient Discharge Instructions ACTIVITY: Continue current activity DIET: continue same diet Patient Instructions: Transient Ischemic Attack, Pulmonary Hypertension in Ad ults, Atrial Fibrillation Print Language: Tamazight Providers Primary Care Provider: Kolton Wayne Admit Provider: Marlon Cross Attending Provider: Marlon Cross
[2025-08-03 12:34] LABS: Troponin I < 0.01 ng/ml (0.00-0.034)
--- NOTE | 2025-08-04 10:05 | SW/DCPLANNER ---
Spoke with patient on the phone. Patient stated that she is doing good. Patient stated that she is aware of her upcoming appointments. Patient stated that she was able to get her new medicine picked up from clinic pharmacy. Patient stated that she has no concerns or questions at this time. Franko Del Cid
== END 2025-08-03 18:02 | disposition home or self-care (01) ==
LOC: ER 09:48 → 2ND 09:51
PROVIDERS: Admitting Provider Internal Medicine Adolescent Medicine; Emergency Provider Student in an Organized Health Care Education/Training Program; PCP Internal Medicine Adolescent Medicine; Visit Provider Internal Medicine Adolescent Medicine
DX: G45.9 Transient cerebral ischemic attack, unspecified (principal); I48.20 Chronic atrial fibrillation, unspecified; E78.2 Mixed hyperlipidemia; I27.21 Secondary pulmonary arterial hypertension; I11.9 Hypertensive heart disease without heart failure; N32.81 Overactive bladder; Z88.2 Allergy status to sulfonamides; Z88.8 Allergy status to other drugs, medicaments and biological substances; Z88.6 Allergy status to analgesic agent; Z79.01 Long term (current) use of anticoagulants; Z79.899 Other long term (current) drug therapy
CPT/HCPCS: 36415; 70450; 70496; 70498; 70551; 80053; 80061; 80307; 80320; 81001; 84484; 85025; 85610; 85730; 93005; 93306; 99285; G0378; Q9967

== ENCOUNTER 2025-08-18 10:50 | Outpatient (CLI) | payer MEDICARE, SELFPAY ==
--- NOTE | 2025-08-18 10:54 | FL_ITS ---
FINAL REPORT CLINICAL HISTORY: SUBACUTE COUGH 540.06 DAP 2.10 FLUORO TIME FINDINGS: ESOPHAGRAM HISTORY: Difficulty swallowing. Cough. PROCEDURE: The patient ingested barium. Effervescent crystals were also administered. Fluoroscopic films were obtained. Fluoro time: 2 minutes 10 seconds minutes. DAP: 540.06 uGy.m2 FINDINGS: Incidental note is made of a prominent cricopharyngeal muscle. There is irregular mucosa of the esophagus which may be related to nonspecific esophagitis. A 13 mm barium tablet passes through the esophagus and into the stomach without delay. There is a very small sliding-type hiatal hernia. No gastroesophageal reflux was demonstrated during the exam. Esophageal dysmotility was demonstrated during the exam. IMPRESSION: Irregular mucosa of the esophagus which may be secondary to nonspecific esophagitis. Consider endoscopy. Small sliding-type hiatal hernia. Esophageal dysmotility. Reviewed, Interpreted and Dictated by Kandis Carrizales MD Transcribed by BRENDAN Torrez Authenticated and [facility]
--- OUTSIDE RECORDS SUMMARY | 2025-08-18 10:54 | XMS_ITS | Continuity of Care Document ---
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 Plan of Treatment [...] acetonide 0.1 % topical ointment 2024 025 [id number] [facility], [address], [address], 07/26/2025 11:30:04 Patient TargetsNo targets recorded. Patient Instructions Encounter Date Encounter Id Patient Instructions Last Modified By Organization Details Last Modified Time 07/26/2025 [id number] Recommended returning to clinic in 6 months for FBSE [email or web address] Not available 2025 16:30:05 Reason for Referral None Reported. 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 Procedures Surgical History Date Name Laterality Status Provider Name and Address Organization Details Recorded Time 01/29/20 25 DAK - Cryo AK completed [facility] 01/28/2025 11:36:31 08/17/20 24 DAK - Biopsy, Tangential completed [facility] 08/17/2024 11:21:21 04/09/20 24 DAK - Cryo AK completed [facility] 04/09/2024 13:39:04 04/09/20 24 DAK - Biopsy, Tangential completed [facility] 04/09/2024 13:39:41 03/05/20 24 DAK - Cryo AK completed [facility] 03/05/2024 10:59:16 12/16/19 24 DAK - Cryo AK completed [facility] 12/16/2023 13:00:22 Mohs completed [facility] 12/16/2023 12:47:16 Appendectomy completed [facility] 12/16/2023 12:51:02 Imaging Results None recorded. Procedure Notes None recorded. Medical Equipment None Reported. Allergies Allergen ID Allergen Name Allergen Category Reaction Reaction Severity Criticality Documentation Date Start Date Code Code System Note Provider Name and Address Organization Details Recorded Time 450214 Substance with sulfonami de structure and antibacte rial mechanism of action (substanc e) medicatio n Not available Not available Not available 09/28/20162012 11215 8003 SNOMED Comme nt: Cregiancarlo ed By: Tano kurtz Date: 2012 7:57: 50 AM; Not Available [facility] 6 08:52:00 365939 Zocor medicatio n Not available Not available Not available 09/28/20162012 89751 3 RxNorm Comme nt: Creat ed By: Tano Ballesteros ;Crea jerardo Date: 2012 7:58: 33 AM; Not Available [facility] 6 08:52:00 388988 Motrin medicatio n Not available Not available Not available 09/28/2016201248 8 RxNorm Comme nt: Creat ed By: Tano Ballesteros ;Crea jerardo Date: 2012 7:58: 10 AM; Not Available [facility] 6 10:05:37 818425 Mevacor medicatio n Not available Not available Not available 09/28/20162012 54881 8 RxNorm Comme nt: Creat ed By: Tano Ballesteros ;Crea jerardo Date: 2012 7:58: 24 AM; Not Available [facility] 6 10:28:03 327297 Zetia medicatio n Not available Not available Not available 09/28/20162012 49317 9 RxNorm Comme nt: Creat ed By: Tano Ballesteros ;Crea jerardo Date: 2012 7:58: 51 AM; Not Available [facility] 6 10:41:11 686198 Valium medicatio n Not available Not available Not available 12/16/202330883 2 RxNorm Dasha Hill [facility] 4 13:03:33 414239 pravastat in medicatio n Not available Not available Not available 12/16/2023 10350 RxNorm Dasha Hill [facility] 4 13:03:40 Medications Name Sig Start Date [...] Of Your Most Recent Tobacco Screening? 03/05/2024 [email or web address] Information not available 03/05/2024 Sex: Unknown Functional Status Question Answer Note LastModified by Organization D etails LastModified Time Do you or have you ever used any other forms of tobacco or nicotine? No [email or web address] Information not available 03/05/2024 Mental Status None [...] ICD10 Code Diagnosis IMO Codes Diagnosis Note [id number] JENNIFER HIRSCH MD D[facility] [address] [id number] [address] 07/26/2025 10:56:19 07/26/2025 11:30:20 Hand eczema [id number] L30.9 016544 Nature of the diagnosis was discussed. Rx sent for triamcinol one acetonide 0.1% topical ointment to apply to hands BID for 1 week then take 1 week break. Repeat if needed.Reyes it applicatio n of topical steroids to 2 weeks.residential use of topical steroids can cause thinning of the skin. Eruption [id number] R21 76355 No visible condition today.Gema ent notes recent change in toothpaste helped rash subside.F/ u if rash reappears. Health Concerns Section Related Observation LastModified by Organization Detai ls LastModified Time None Recorded Concern Status LastModified by Organization Details LastModified Time None Recorded Payers Encounter Date Sequence Insurance Name Policy Number Policy Vazquez Covered Member ID Vazquez Member ID Guarantor Name 07/26/2025 1 [facility] (MEDICARE REPLACEMENT/A DVANTAGE - PPO) [id number] Halina Willoughby [id number] Halina Willoughby Notes Date Note Type Note [...] Last skin cancer 08/2024 JENNIFER HIRSCH MD [facility] [place], [address], [facility] 07/26/2025 12:06:13 OBGyn Episode No OBEpisode recorded.
--- OUTSIDE RECORDS SUMMARY | 2025-08-18 10:55 | XMS_ITS | Data Portability ---
Author Organization ADRIA ESCOBAR [place] [facility] Address [address] [facility] [address] [place] [address] Care Team Providers Care Agile Developer Name Role Phone FAWAD SHEPHERD Primary Care Provider JENNIFER DUTTON Newscast Director Assessment No assessment recorded. Plan of Treatment [...] acetonide 0.1 % topical ointment [address] [facility], [address], [address], 07/26/2025 11:30:04 mupirocin 2 % topical ointment [address] [facility], [address], [address], 12/07/2024 12:01:12 Patient TargetsNo targets recorded. Patient Instructions Encounter Date Encounter Id Patient Instructions Last Modified By Organization Details Last Modified Time 10/14/2024 [id number] Patient has no complaints at this time. Wound was treated with Silver Nitrate. Patient is to continue wound care and Vaseline until healed. She is scheduled back in a month for another follow up. [email or web address] Not available 10/15/2024 16:15:40 01/28/2025 [id number] Recommended returning to clinic in 6 months for FBSE Not available 01/28/2025 11:33:27 07/26/2025 [id number] Recommended returning to clinic in 6 months for FBSE [email or web address] Not available 2025 16:30:05 Reason for Referral None Reported. Results Created Date Observation Date Name Description Value Unit Range Abnormal Flag Note LastModifiedBy Organization Detail LastModifiedTime 08/17/20 24 08/17/2024 SURGI HAYLIE surgical SEE BELOW abnormal Ridge topat holog y Repor t NAME: HALINA [...] Out Date: 08/19 11:31 1 Not Available [facility] [address] [facility], [place], [address], 08/19/2024 11:31:33 Result Notes None recorded. 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 Procedures Surgical History Date Name Laterality Status Provider Name and Address Organization Details Recorded Time 01/29/20 25 DAK - Cryo AK completed [facility] 01/28/2025 11:36:31 08/17/20 24 DAK - Biopsy, Tangential completed Elaina [facility] 08/17/2024 11:21:21 04/09/20 24 DAK - Cryo AK completed Elaina [facility] 04/09/2024 13:39:04 04/09/20 24 DAK - Biopsy, Tangential completed Elaina [facility] 04/09/2024 13:39:41 03/05/20 24 DAK - Cryo AK completed Elaina [facility] 03/05/2024 10:59:16 12/16/19 24 DAK - Cryo AK completed El[facility]a [facility] 12/16/2023 13:00:22 Mohs completed [facility] 12/16/2023 12:47:16 Appendectomy completed [facility] 12/16/2023 12:51:02 Imaging Results None recorded. Procedure Notes None recorded. Medical Equipment None Reported. Allergies Allergen ID Allergen Name Allergen Category Reaction Reaction Severity Criticality Documentation Date Start Date Code Code System Note Provider Name and Address Organization Details Recorded Time 052732 Substance with sulfonami de structure and antibacte rial mechanism of action (substanc e) medicatio n Not available Not available Not available 09/28/20162012 05451 8003 SNOMED Comme nt: Creat ed By: Tano Ballesteros ;Crea jerardo Date: 2012 7:57: 50 AM; Not Available [facility] 6 08:52:00 267626 Zocor medicatio n Not available Not available Not available 09/28/20162012 98791 3 RxNorm Comme nt: Creat ed By: Tano Ballesteros ;Crea jerardo Date: 2012 7:58: 33 AM; Not Available [facility] 6 08:52:00 877082 Motrin medicatio n Not available Not available Not available 09/28/20162012 31281 8 RxNorm Comme nt: Creat ed By: Tano Ballesteros ;Crea jerardo Date: 2012 7:58: 10 AM; Not Available [facility] 6 10:05:37 398253 Mevacor medicatio n Not available Not available Not available 09/28/20162012 30190 8 RxNorm Comme nt: Creat ed By: Tano Ballesteros ;Crea jerardo Date: 2012 7:58: 24 AM; Not Available [facility] 6 10:28:03 538628 Zetia medicatio n Not available Not available Not available 09/28/20162012 34745 9 RxNorm Comme nt: Creat ed By: Tano FishCrea jerardo Date: 2012 7:58: 51 AM; Not Available [facility] 6 10:41:11 259717 Valium medicatio n Not available Not available Not available 12/16/202391981 2 RxNorm [facility] 4 13:03:33 078826 pravastat in medicatio n Not available Not available Not available 12/16/2023 07887 [facility] 4 13:03:40 Medications Name [...] ICD10 Code Diagnosis IMO Codes Diagnosis Note [id number] JENNIFER HIRSCH MD [facility] [address] [facility] [place] [address] 12/16/2023 12:43:57 12/16/2023 13:06:40 History of malignant neoplasm of skin 234096327 Z85.828 - No evidence of recurrence today- Call with any worrisome lesions or if treated lesions return- Return at regular intervals for skin exam as recommende d Most recent, 2014 Multiple b enign melanocytic nevi 570293154 D22.5 - Benign moles seen on exam [...] changing or worrisome lesions Seborrheic keratosis 394 627616 L82.1 - Benign overgrowth s of skin - Hereditary Senile angioma 7439534 I 78.1 - Benign blood vessel growths - Hereditary Solar lentigo 17664733 L 81.4 - Benign brown spots - Sun-induce d Family his tory of malignant melanoma 733598508 Z80.8 Sisters Actinic keratosis L57.0 Actinic keratoses are precancero us lesions that may progress to squamous cell carcinoma if untreated. UV light and genetics may increase risk. Treated lesions should blister, scab over, and heal within a few weeks. If treated lesion(s) does not resolve within 1-2 months, patient agrees to follow up for re-evaluat ion. [id number] JENNIFER HIRSCH MD [address] [place] [address] 03/05/2024 10:18:47 03/05/2024 11:01:30 Actinic keratosis L57.0 Actinic keratoses are precancero us lesions that may progress to squamous cell carcinoma if untreated. UV light and genetics may increase risk. Treated lesions should blister, scab over, and heal within a few weeks. If treated lesion(s) does not resolve within 1-2 months, patient agrees to follow up for re-evaluat ion. [id number] JENNIFER HIRSCH MD [address] [place] [address] 04/09/2024 13:20:41 04/09/2024 13:41:31 Neoplasm of uncertain behavior of skin 73802290 D48.5 Frontal scalp - 1.2cm crusted plaque [...] agrees to follow up for re-evaluat ion. [id number] JENNIFER HIRSCH MD [address] [place] [address] 08/17/2024 10:04:25 08/17/2024 11:34:06 Neoplasm of uncertain behavior of skin 15374653 D48.5 Patient reports recurrent since 4Pt has used tac, caused burning Will bx today R distal 4th finger - 1.3cm whitish pink nodule - R/o SCC vs Cyst vs OtherL 2nd finger - white scaly papules coalescing into plaques - R/o VV vs SCC vs EDV vs LP vs Other Seborrheic dermatitis 50 776678 L21.8 Seborrheic dermatitis can cause itching, redness and dandruff in the scalp, brows, facial folds and chest. A yeast naturally found on the skin can overgrow and cause this reaction in some people. The condition may wax and wane. K etoconazol e 2% cream BID prescribed .Will consider topical steroid if no improvemen t. Seborrheic keratosis 394 172171 L82.1 - Benign overgrowth s of skin- Hereditary [id number] SIRENA MCKEON MD [address] [place] [address] 09/09/2024 10:45:29 09/09/2024 12:41:25 [id number] SIRENA MCKENO MD [address] [place] [address] 09/16/2024 10:30:09 09/16/2024 13:33:53 [id number] SIRENA MCKEON MD [address] [facility] [place] [address] 10/14/2024 11:49:18 10/14/2024 13:05:55 Postoperative visit [id number] Z09 Scar 172465418 L90.5 History of squamous cell carcinoma of skin 449638258 Z85.828 No evidence of recurrence . Discussed risk of recurrence and new skin cancers, so regular self exam and profession al skin checks are recommende d. Sun protection with broad spectrum SPF 30 sunscreen and broad-brim med hat is recommende d. Sun protection with SPF 30 broad spectrum sunscreen and protective gear discussed. Abnormal g ranulation tissue 41308208 L92.9 Silver Nitrate was applied to wound bed on hyper-gran ulation tissue. [id number] MD [facility] [place] [address] [place] [address] 12/07/2024 10:55:17 12/07/2024 11:18:49 History of malignant neoplasm of skin 317147834 Z85.828 - No evidence of recurrence today- Call with any worrisome lesions or if treated lesions return- Return at regular intervals for skin exam as recommende d Most recent, 08/2024 Melanocyti c nevus of face 334532638 D22.39 - Benign moles seen on exam [...] changing or worrisome lesions Seborrheic keratosis 394 866567 L82.1 - Benign brown spots - Hereditary Solar lentigo 10699471 L 81.4 - Benign brown spots - Sun-induce d Family his tory of malignant melanoma 797809030 Z80.8 Sisters Nasal vestibulitis 27485 000 J34.89 Nature of the dx was explainedD iscsussed likely due to recurrent staph Will send in mupirocin 2% ointment to use TID to area around nose until healed Superficia l ulcer of skin 66164002 L98.499 Appears to be a scratch Rec vaseline throughout the day Pt will call if not healing [id number] MD [facility] [place] [address] [place] [address] 01/28/2025 10:50:45 01/28/2025 11:58:05 History of malignant neoplasm of skin 761685676 Z85.828 - No evidence of recurrence today- Call with any worrisome lesions or if treated lesions return- Return at regular intervals for skin exam as recommende d Most recent, 08/2024 Family his tory of malignant melanoma 484683207 Z80.8 Sisters Nasal vestibulitis 03752 000 J34.89 Nature of the dx was explainedd iscussed likely due to recurrent staph Pt has mupirocin 2% ointment to use TID to area around nose until healed when flaring Multiple b enign melanocytic nevi 205092317 D22.5 - Benign moles seen on exam [...] changing or worrisome lesions Seborrheic keratosis 394 857624 L82.1 - Benign blood vessel growths - Hereditary Solar lentigo 66864005 L 81.4 - Benign brown spots - Sun-induce d Senile angioma 5571975 I 78.1 - Benign blood vessel growths - Hereditary Actinic keratosis 960417 007 L57.0 Actinic keratoses are precancero us lesions that may progress to squamous cell carcinoma if untreated. UV light and genetics may increase risk. Treated lesions should blister, scab over, and heal within a few weeks. If treated lesion(s) does not resolve within 1-2 months, patient agrees to follow up for re-evaluat ion. Varicose v eins of lower extremity 68699224 I83.93 Nature of the dx was explained Rec keeping vaseline on area when soreElevat e feet as much as possibleRe c compressio n hose See vascular surgeon if symptomati c [id number] JENNIFER HIRSCH MD [facility] [address] [place] [address] 07/26/2025 10:56:19 07/26/2025 11:30:20 Hand eczema 495715686 L30.9 855174 Nature of the diagnosis was discussed. Rx sent for triamcinol one acetonide 0.1% topical ointment to apply to hands BID for 1 week then take 1 week break. Repeat if needed.Reyes it applicatio n of topical steroids to 2 weeks.intermediate accountant use of topical steroids can cause thinning of the skin. 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 [facility] 10/15/2024 16:20:13 12/07/2024 text/html Pt is here for skin lesions Location: nose, L eyebrowDuration: since 11/11/24Treatments: noneReports: spot on nose appeared around time pt got a cold 11/11/24, never healed JENNIFER HIRSCH MD [address] [place] [address], [address], [facility] 12/07/2024 12:19:39 01/28/2025 text/html ROS as noted in the HPI Here for a full body skin examination - last skin check: 12/2023 - history of skin cancer - BCC and SCC - last skin cancer was in 08/2024 - spots of concern today: none JENNIFER HIRSCH MD [facility] [place], [address], [facility] 02/01/2025 19:59:28 07/26/2025 text/html ROS as noted in the HPI Pt here today for spot(s) of concern Location: hand, lower lipDuration: 2 months, unsureSymptoms: burning Pt is due for a FBSE exam but declined. Wasn't aware she was supposed to get them every 6 months following a skin cancer Last skin cancer 08/2024 JENNIFER HIRSCH MD [address] [place], [address], [facility] 07/26/2025 12:06:13 OBGyn Episode No OBEpisode recorded.
[2025-08-18] MEDS: E-Z-GASII EFFERVESCENT GRANULES;1PK 1 EACH PO (11:45)
[2025-08-18] MEDS: BARIUM SULFATE(E-Z-AC);750ML BOTTLE 750 ML PO (11:45)
[2025-08-18] MEDS: BARIUM SULFATE (E-Z-HD 340GM);135ML BOTTLE 135 ML PO (11:45)
[2025-08-18 11:48] LABS: Hematocrit 30.7 % (37.0-47.0); Hemoglobin 10.0 g/dL (12.2-16.2); Immature Granulocytes % 0 %; Mean Corpuscular HGB Conc 32.6 g/dL (31.8-35.4); Mean Corpuscular Hemoglobin 30.0 pg (27.0-31.2); Mean Corpuscular Volume 92.2 fl (81-99); Nucleated Red Blood Cells % 0 %; Platelet Count 192 K/mm3 (142-424); Red Blood Count 3.33 M/mm3 (4.20-5.40); Red Cell Distribution Width-SD 47.5 fL; White Blood Count 3.9 K/mm3 (4.8-10.8)
== END 2025-08-18 23:59 | disposition home or self-care (01) ==
LOC: RAD 10:51
PROVIDERS: Specialist; PCP Internal Medicine Adolescent Medicine; Visit Provider Internal Medicine Adolescent Medicine
DX: K44.9 Diaphragmatic hernia without obstruction or gangrene (principal); K22.4 Dyskinesia of esophagus; K22.89 Other specified disease of esophagus; D64.9 Anemia, unspecified; R05.2 Subacute cough
CPT/HCPCS: 36415; 74220; 85025

== ENCOUNTER → 2025-08-20 09:14 | Outpatient (CLI) | payer MEDICARE, SELFPAY | LOC: SL 09:15 | PROVIDERS: PCP Internal Medicine Adolescent Medicine; Visit Provider Specialist | DX: G47.30 Sleep apnea, unspecified (principal) | CPT/HCPCS: 94762 ==

== ENCOUNTER 2025-09-07 11:55 | Outpatient (CLI) | payer MEDICARE, SELFPAY ==
[2025-09-07 13:28] LABS: Anion Gap 11.2 mEq/L (5-15); Blood Urea Nitrogen 25 mg/dl (7-17); Calcium 9.5 mg/dl (8.4-10.2); Carbon Dioxide 28 mmol/L (22.0-30.0); Chloride 95 mmol/L (98-107); Creatinine,Serum 0.80 mg/dl (0.52-1.04); Estimated Glomerular Filt Rate 69 ml/min (>60); GFR (African American) 83 ML/MIN (>60); Glucose 119 mg/dl (74-100); Potassium 4.2 mmoL/L (3.5-5.1); Sodium 130 mmol/L (136-145)
== END 2025-09-07 23:59 | disposition home or self-care (01) ==
LOC: LAB 11:56
PROVIDERS: PCP Internal Medicine Adolescent Medicine; Visit Provider Physician Assistant
DX: E78.5 Hyperlipidemia, unspecified (principal); I10 Essential (primary) hypertension
CPT/HCPCS: 36415; 80048

== ENCOUNTER → 2025-09-08 20:22 | Outpatient (CLI) | payer MEDICARE, SELFPAY | LOC: SL 20:23 | PROVIDERS: PCP Internal Medicine Adolescent Medicine; Visit Provider Specialist | DX: G47.34 Idiopathic sleep related nonobstructive alveolar hypoventilation (principal) ==

== ENCOUNTER 2025-10-08 08:55 | Emergency (ER) | payer MEDICARE, SELFPAY ==
[2025-10-08 09:01] VITALS: BP 174/89; PULSE 90; RESP 16; TEMP 36.6; O2SAT 100; BMI 24.1
--- NOTE | 2025-10-08 09:22 | CT_ITS ---
FINAL REPORT TECHNIQUE: Thin section axial images were obtained from skull base to vertex without contrast. Coronal and sagittal reconstruction images were obtained from the axial data. Exam was performed using dose reduction techniques such as automated exposure control, adjustment of the mA and kV according to patient size, and use of iterative reconstruction technique. CLINICAL HISTORY: Fall 3wks ago, feels confused COMPARISON: 08/03/2025 FINDINGS: There is atrophy. No mass effect or midline shift. No intracranial hemorrhage. No hydrocephalus. Periventricular low density is likely related to changes of chronic small vessel ischemia. The basilar cisterns are preserved. The posterior fossa is without acute abnormality. The soft tissues are without acute abnormality. No acute osseous abnormality is identified. IMPRESSION: No acute intracranial abnormality. Atrophy and changes suggesting chronic small vessel ischemia. Findings are stable when compared to the prior CT of 08/03/2025. Reviewed, Interpreted and Dictated by Kandis Carrizales MD Transcribed by Sonal Celeste Authenticated and . [facility]
--- NOTE | 2025-10-08 09:23 | HMH.EDGENADL ---
Discharge Plan Disposition Patient Disposition: Home, Self-Care Prescriptions Prescriptions: No Action loratadine 10 mg tablet 10 mg PO DAILY cholecalciferol (vitamin D3) 50 mcg (2,000 unit) capsule 50 mcg PO DAILY ascorbic acid (vitamin C) 500 mg capsule 500 mg PO DAILY mirabegron 25 mg tablet extended release 24 hr 25 mg PO DAILY dapagliflozin propanediol [Farxiga] 10 mg tablet 10 mg PO DAILY Qty: 30 2RF spironolactone 25 mg tablet 25 mg PO DAILY Qty: 30 2RF lisinopril 2.5 mg tablet 2.5 mg PO DAILY Qty: 30 2RF aspirin 81 mg tablet 81 mg PO DAILY Qty: 30 3RF Rx Instructions: only take after finished with clopidogrel Eliquis 5 mg tablet 5 mg PO BID Qty: 180 3RF atorvastatin [Lipitor] 40 mg tablet 40 mg PO HS Qty: 30 0RF Referrals Follow up/Referrals: Kolton Wayne MD [Primary Care Provider, Internal Medicine] - See instructions Activity Restrictions/Add. Instructions Additional Instructions/Restrictions: Encourage you to follow-up with Dr. Wayne on Saturday as scheduled. Your workup today showed no signs of internal bleeding, fracture or infection. If you develop any new or worsening symptoms, or if you become concerned for your health for any reason, return to the emergency department for evaluation. Clinical Impressions Clinical Impression: Fall, Transient confusion Print Language Print Language: Kittitian Discharge ED Provider: Yordy Schultz General Adult HPI General Chief complaint: Fall Stated complaint: AO 09/23 Fall, pain head/bottom/hip, confusion Time Seen by Provider: 10/08/25 09:12 History of Present Illness HPI narrative: Halina Willoughby is an 85y female with a history of TIA on Eliquis, atorvastatin, aspirin, A-fib, hypertension, hyperlipidemia who presents to the emergency department for complaints of transient confusion. Patient states that 3 weeks ago while cleaning her tub, she fell backwards into the tub and hit the back of her head on one of the handrails. She did not lose consciousness. She states that she had a small bump on the back of her head that will intermittently swell to the front of her scalp at night. She states that yesterday she was on the phone with her niece who lives in [place] and had difficulty telling her the ingredients that she put into an item she made for Thanksgiving and had trouble remembering another niece's name. She thinks that it could be related to the fall. She has not fallen since that incident 3 weeks ago. She states that yesterday, she also did not urinate as much as she normally does. She also states that during the fall, she landed on her bottom in the tub and has some pain in her lower pelvic area but has been ambulatory since without difficulty. Related Data Home Medications ?Medication ?Instructions ?Recorded ?Confirmed ascorbic acid (vitamin C) 500 mg 500 mg PO DAILY 06/26/21 09/07/25 capsule cholecalciferol (vitamin D3) 50 50 mcg PO DAILY 06/26/21 09/07/25 mcg (2,000 unit) capsule loratadine 10 mg tablet 10 mg PO DAILY 06/26/21 09/07/25 mirabegron 25 mg tablet,extended 25 mg PO DAILY 08/17/25 09/07/25 release 24 hr Previous Rx's ?Medication ?Instructions ?Recorded apixaban 5 mg tablet (Eliquis) 5 mg PO BID #180 tabs 07/10/24 atorvastatin 40 mg tablet (Lipitor) 40 mg PO HS #30 tabs 08/03/25 Farxiga 10 mg tablet 10 mg PO DAILY #30 tabs 08/17/25 (dapagliflozin propanediol) lisinopril 2.5 mg tablet 2.5 mg PO DAILY #30 tabs 08/17/25 spironolactone 25 mg tablet 25 mg PO DAILY #30 tabs 08/17/25 aspirin 81 mg tablet 81 mg PO DAILY #30 tabs 08/18/25 Allergies Allergy/AdvReac Type Severity Reaction Status Date / Time diazepam (From Valium) AdvReac dizziness Verified 09/07/25 10:56 ezetimibe (From Zetia) AdvReac swelling Verified 09/07/25 10:56 ibuprofen (From Motrin) AdvReac bleeding Verified 09/07/25 10:56 lovastatin (From Mevacor) AdvReac itching Verified 09/07/25 10:56 pravastatin AdvReac swelling Verified 09/07/25 10:56 simvastatin (From Zocor) AdvReac itching Verified 09/07/25 10:56 Sulfa (Sulfonamide AdvReac sycope Verified 09/07/25 10:56 Antibiotics) [facility] Disclaimer: The information contained in this section may have been updated after the patient was seen, as this information can be updated by other users. Medical History Nocturnal hypoxemia Sleep-disordered breathing Basal cell carcinoma Varicose veins of right lower extremity Hx of cyst of breast Anemia Transient ischemic attack Currently on best medical therapy including Eliquis for A-fib, Plavix, (transitioning to enteric-coated aspirin 81 mg), statins, LM inhibitor. (HFpEF) heart failure with preserved ejection fraction Chest pain History of skin cancer OAB (overactive bladder) Anxiety History of anemia Pulmonary arterial hypertension HLD (hyperlipidemia) HTN (hypertension) Atrial fibrillation On Eliquis Surgical History Hx of tubal ligation Hx of appendectomy History of cataract surgery Family History Other Cancer Hypertension Social History Smoking Status: Never smoker alcohol intake: never substance use type: denies use current occupational status: other Travel in the last 8 weeks?: Inside the [place] Have you lived/traveled outside US in past 30 days?: No Contact w/someone who lives/traveled outside US past 30 days?: No Exposure to someone with infectious disease in past 14 days?: No Do you have a fever (greater than 100.4 F or 38 C)?: No Have you tested positive for COVID-19?: No Exposed to someone with COVID-19 in past 14 days?: No Do you have a sore throat?: No Do you have a cough?: No Do you have any weakness?: No Do you have any diarrhea?: No Are you experiencing any unusual bleeding?: No Do you have any muscle aches/pain?: No Do you have any abdominal pain?: No Are you experiencing loss of taste or smell?: No Other Medical History Have you received the Flu Vaccine for this season: No Have you received the Pneumonia Vaccine: Yes ROS Obtained: Yes Systems reviewed as appropriate & no additional complaints except as documented Physical Exam General General appearance: alert and in no apparent distress Head Head exam: atraumatic (No hematoma, swelling, or skin breakdown), normocephalic and normal inspection Eye Eye exam: Present normal appearance ENT ENT exam: Present normal external ear exam Neck Neck exam: Present full ROM; Absent tenderness (no midline cervical spine tenderness) Chest Chest inspection: Present symmetric chest wall rise Respiratory Respiratory exam: Present normal lung sounds bilaterally; Absent respiratory distress, wheezes or stridor Cardiovascular Cardiovascular exam: Present regular rate and normal rhythm Abdominal Exam Abdominal exam: Present soft; Absent distention, tenderness, guarding or rigidity Extremities Exam Extremities exam: Present normal inspection Back Exam Back exam: Present normal inspection and tenderness (Bilateral posterior pelvic area); Absent vertebral tenderness Neurological Exam Neurological exam: Present alert, oriented X3 and CN II-XII intact; Absent motor sensory deficit Psychiatric Psychiatric exam: Present normal affect Skin Skin exam: Present warm and dry Medical Decision Making Medical Records Screening: Per USPSTF and CDC recommendations, given the prevalence of disease in our region, it is our hospital?s policy to screen for HIV and viral Hepatitis for all patients aged 18 and over and those with ongoing risk factors. Pk Inquiry Pt receiving controlled substance: No Vital Signs: 10/08/25 09:01 10/08/25 09:01 10/08/25 09:39 Temperature 98 F 98 F Temperature Source Oral Oral Pulse Rate 90 Pulse Rate [Right] 90 Respiratory Rate 16 16 Blood Pressure 174/89 H Blood Pressure [Right Arm] 174/89 H Blood Pressure Mean Blood Pressure Mean [Right Arm] 117 Blood Pressure Source Automatic Cuff Blood Pressure Source [Right Arm] Automatic Cuff Blood Pressure Position Supine Blood Pressure Position [Right Arm] Supine 02 Sat by Pulse Oximetry 100 100 100 Oxygen Delivery Method Room Air Room Air Room Air 10/08/25 09:58 10/08/25 10:00 10/08/25 10:30 Temperature Temperature Source Pulse Rate 84 80 81 Pulse Rate [Right] Respiratory Rate 16 16 Blood Pressure 102/84 L 142/56 H 134/61 Blood Pressure [Right Arm] Blood Pressure Mean 89 81 Blood Pressure Mean [Right Arm] Blood Pressure Source Blood Pressure Source [Right Arm] Blood Pressure Position Blood Pressure Position [Right Arm] 02 Sat by Pulse Oximetry 99 99 99 Oxygen Delivery Method Room Air Lab Data Lab Results 10/08/25 09:37: Urine Color Yellow, Urine Appearance Clear, Urine pH 7.5, Ur Specific [place] 1.010, Urine Protein Negative, Urine Glucose (UA) 2+, Urine Ketones Negative, Urine Blood Negative, Urine Nitrate Negative, Urine Bilirubin Negative, Urine Urobilinogen 0.2, Ur Leukocyte Esterase Negative, Urine RBC None, Urine WBC None, Ur Squamous Epith Cells None, Urine Bacteria Trace 10/08/25 09:38: WBC 4.4 L, RBC 3.23 L, Hgb 9.7 L, Hct 29.5 L, MCV 91.3, MCH 30.0, MCHC 32.9, RDW 14.5, Plt Count 207, MPV 9.6, Neut % (Auto) 69.0, Lymph % (Auto) 16.1, [place] % (Auto) 10.1 H, Eos % (Auto) 4.6, Baso % (Auto) 0.2, Neut # (Auto) 3.0, Lymph # (Auto) 0.7, [place] # (Auto) 0.4, Eos # (Auto) 0.2, Baso # (Auto) 0.0, Sodium 134 L, Potassium 4.6, Chloride 95 L, Carbon Dioxide 31 H, Anion Gap 12.6, BUN 23 H, Creatinine 0.90, Estimated Creat Clear 44, Estimated GFR 60, Est GFR ( Amer) 72, Glucose 94, Calcium 9.3, Magnesium 1.9, Total Bilirubin 0.5, AST 39 H, ALT 27, Alkaline Phosphatase 87, Total Protein 7.5, Albumin 4.3, Globulin 3.2, Albumin/Globulin Ratio 1.3 10/08/25 09:38 10/08/25 09:38 Orders (Tests/Meds): ORDERS Category Date Time Status CT head/brain wo con Stat Cat Scan 10/08/25 09:22 Taken Pelvis XR 1-2 views [XR pelvis 1-2V] Stat Exams 10/08/25 09:25 Taken CBC w/Auto Diff [Complete Blood Count Auto Diff] Stat Lab 10/08/25 09:38 Completed CMP [Comprehensive Metabolic Panel] Stat Lab 10/08/25 09:38 Completed HIV Combo Stat Lab 10/08/25 09:38 Received Hepatitis C Ab Qual. W/ RFX Stat Lab 10/08/25 09:38 Received Magnesium Stat Lab 10/08/25 09:38 Completed PT INR [Prothrombin Time INR] Stat Lab 10/08/25 09:38 Received UA [Urinalysis and Microscopic] Stat Lab 10/08/25 09:37 Completed Medical Decision Narrative: Halina Willoughby is an 85y female with a history of TIA on Eliquis, atorvastatin, aspirin, A-fib, hypertension, hyperlipidemia who presents to the emergency department for complaints of transient confusion. Patient states that 3 weeks ago while cleaning her tub, she fell backwards into the tub and hit the back of her head on one of the handrails. She did not lose consciousness. She states that she had a small bump on the back of her head that will intermittently swell to the front of her scalp at night. She states that yesterday she was on the phone with her niece who lives in [place] and had difficulty telling her the ingredients that she put into an item she made for Thanksgiving and had trouble remembering another niece's name. She thinks that it could be related to the fall. She has not fallen since that incident 3 weeks ago. She states that yesterday, she also did not urinate as much as she normally does. She also states that during the fall, she landed on her bottom in the tub and has some pain in her lower pelvic area but has been ambulatory since without difficulty. On arrival, patient is hypertensive with blood pressure 174/89, heart rate within normal limits, breathing comfortably room air with appropriate oxygen saturation. Afebrile. Physical exam, stated above, revealed an overall well-appearing female in no distress. She is alert and oriented and recalls the details of this event in detail. She does not appear confused at this time. She has no external evidence of head trauma. Neuroexam is completely nonfocal and NIH of 0. Abdomen is soft, nontender nondistended. She has some mild tenderness in the posterior pelvic area without deformity. No midline C/T/L-spine tenderness or step-off. Differential diagnosis includes, but is not limited to: Mild concussion, intracranial hemorrhage, pelvic fracture, electrolyte derangement, metabolic derangement, urinary tract infection, among others. The most morbid conditions were considered and workup was based on these. Will obtain CT head without contrast, pelvic x-ray, CBC with differential, CMP, magnesium level, PT/INR, urinalysis Laboratory studies are unremarkable nonactionable. Patient's white count is low at baseline and near baseline of 4.4, chronic low hemoglobin at 9.7, hematocrit 29.5. Platelets within normal limits. Electrolytes shows mild hyponatremia at 134 but this appears to be near baseline. Potassium normal at 4.6. No DIONISIO. Very mildly elevated AST but liver enzymes and bilirubin otherwise within normal limits. Magnesium normal at 1.9. Urinalysis without blood or evidence of infection. CT imaging of the head was interpreted by me personally. No intracranial hemorrhage, mass or midline shift. There is atrophy and changes suggestive of some chronic small vessel ischemia but nothing acute. Pelvis x-ray was also interpreted by me personally and showed degenerative disease of the hips but no acute bony abnormality. See radiology report for interpretation. On reassessment, patient remains in stable condition. She remains alert and oriented and asymptomatic at this time. Is possible patient had a mild TIA during this event, however she is on appropriate therapy. She also had recent brain MRI in July that showed moderate changes of chronic microvascular ischemia. I do feel that she is appropriate for discharge at this time. She states that she has follow-up with her primary care doctor on Saturday and I encouraged her to attend this appointment. Return precautions were given. All questions were answered. She demonstrated understanding and was in agreement this plan. She was then discharged from the emergency department in stable condition peer Critical Care Critical Care Time Critical Care Time: No
--- NOTE | 2025-10-08 09:25 | XR_ITS ---
FINAL REPORT CLINICAL HISTORY: Fall, low back/pelvic pain COMPARISON: None FINDINGS: SINGLE VIEW PELVIS: A single view of the pelvis was obtained. There is no acute fracture or dislocation. Visualized joint spaces are normally aligned. There is bilateral degenerative disease of both hips. Soft tissues are unremarkable. IMPRESSION: Bilateral degenerative disease of the hips, with no acute bony abnormality. Reviewed, Interpreted and Dictated by Kandis Carrizales MD Transcribed by Sonal Celeste Authenticated and [facility]
[2025-10-08 09:39] VITALS: O2SAT 100
[2025-10-08 09:52] LABS: Hematocrit 29.5 % (37.0-47.0); Hemoglobin 9.7 g/dL (12.2-16.2); Immature Granulocytes % 0 %; Mean Corpuscular HGB Conc 32.9 g/dL (31.8-35.4); Mean Corpuscular Hemoglobin 30.0 pg (27.0-31.2); Mean Corpuscular Volume 91.3 fl (81-99); Nucleated Red Blood Cells % 0 %; Platelet Count 207 K/mm3 (142-424); Red Blood Count 3.23 M/mm3 (4.20-5.40); Red Cell Distribution Width-SD 48.2 fL; White Blood Count 4.4 K/mm3 (4.8-10.8)
[2025-10-08 09:52] LABS: Microscopic, Urine URINE MICROSCOPIC (MICROSCOPIC)
[2025-10-08 09:53] LABS: Bilirubin,Urine Negative (Negative); Color,Urine YELLOW (Yellow); Glucose,Urine (UA) 2+ (Negative); Ketones,Urine Negative (Negative); Leukocyte Esterase,Urine Negative (Negative); PH,Urine 7.5 (5.0-8.5); Protein,Urine Negative (Negative); Specific Gravity, Urine 1.010 (1.005-1.030); Urobilinogen,Urine 0.2 EU/dl (0.2)
[2025-10-08 09:57] LABS: Albumin Level 4.3 g/dl (3.5-5.0); Chloride 95 mmol/L (98-107); Potassium 4.6 mmoL/L (3.5-5.1); Sodium 134 mmol/L (136-145)
[2025-10-08 09:58] VITALS: BP 102/84; PULSE 84; RESP 16; O2SAT 99
[2025-10-08 10:00] VITALS: BP 142/56; PULSE 80; O2SAT 99
[2025-10-08 10:00] LABS: Alanine Aminotransferase 27 U/L (12-78); Albumin/Globulin Ratio 1.3 (1.1-1.8); Alkaline Phosphatase 87 U/L (38-126); Anion Gap 12.6 mEq/L (5-15); Aspartate Amino Transferase 39 U/L (14-36); Bilirubin,Total 0.5 mg/dl (0.2-1.3); Blood Urea Nitrogen 23 mg/dl (7-17); Carbon Dioxide 31 mmol/L (22.0-30.0); Creatinine Clearance Estimated 44 mL/min (50-200); Creatinine,Serum 0.90 mg/dl (0.52-1.04); Estimated Glomerular Filt Rate 60 ml/min (>60); GFR (African American) 72 ML/MIN (>60); Globulin 3.2 g/dL (1.3-3.2); Total Protein,Serum 7.5 g/dl (6.3-8.2)
[2025-10-08 10:01] LABS: Calcium 9.3 mg/dl (8.4-10.2); Glucose 94 mg/dl (74-100); INR 1.07 (0.9-1.1); Magnesium 1.9 mg/dl (1.6-2.3); Prothrombin Time 11.8 seconds (10.1-12.5)
[2025-10-08 10:06] LABS: Bacteria,Urine Trace /lpf
[2025-10-08 10:30] VITALS: BP 134/61; PULSE 81; RESP 16; O2SAT 99
[2025-10-08 10:40] VITALS: BP 134/61; PULSE 84; RESP 16; TEMP 36.6; O2SAT 100
[2025-10-08 11:35] LABS: Hepatitis C Ab Qual. W/ RFX NEGATIVE (Negative)
== END 2025-10-08 10:49 | disposition home or self-care (01) ==
PROVIDERS: Emergency Provider Student in an Organized Health Care Education/Training Program; PCP Internal Medicine Adolescent Medicine
DX: R10.23 Pelvic and perineal pain bilateral (principal); R41.0 Disorientation, unspecified; W18.2XXA Fall in (into) shower or empty bathtub, initial encounter; Z86.73 Personal history of transient ischemic attack (TIA), and cerebral infarction without residual deficits; Z79.01 Long term (current) use of anticoagulants
CPT/HCPCS: 70450; 72170; 80053; 81001; 83735; 85025; 85610; 86803; 87389; 99285